=== PATIENT | male | born 1980 | race Caucasian/White ===

== ENCOUNTER → 2019-06-04 09:26 | Outpatient (BNVA) | payer MEDICAID, SELFPAY | PROVIDERS: PCP Family Medicine; Visit Provider Nurse Practitioner | DX: F25.1 Schizoaffective disorder, depressive type (principal); F10.20 Alcohol dependence, uncomplicated | CPT/HCPCS: 99213 ==

== ENCOUNTER → 2019-07-02 08:56 | Outpatient (BNVA) | payer MEDICAID, SELFPAY | PROVIDERS: PCP Family Medicine; Visit Provider Nurse Practitioner | DX: F25.1 Schizoaffective disorder, depressive type (principal); F10.20 Alcohol dependence, uncomplicated | CPT/HCPCS: 96372; 99213 ==

== ENCOUNTER → 2019-07-30 10:49 | Outpatient (BNVA) | payer MEDICAID, SELFPAY | PROVIDERS: PCP Family Medicine; Visit Provider Nurse Practitioner | DX: F25.1 Schizoaffective disorder, depressive type (principal); F10.20 Alcohol dependence, uncomplicated | CPT/HCPCS: 99213 ==

== ENCOUNTER → 2019-09-24 07:37 | Outpatient (BNVA) | payer MEDICAID, SELFPAY | PROVIDERS: PCP Family Medicine; Visit Provider Nurse Practitioner | DX: F10.20 Alcohol dependence, uncomplicated (principal); F25.1 Schizoaffective disorder, depressive type | CPT/HCPCS: 99213 ==

== ENCOUNTER → 2019-10-22 07:44 | Outpatient (BNVA) | payer MEDICAID, SELFPAY | PROVIDERS: PCP Family Medicine; Visit Provider Nurse Practitioner | DX: F10.20 Alcohol dependence, uncomplicated (principal); F25.1 Schizoaffective disorder, depressive type | CPT/HCPCS: 99213 ==

== ENCOUNTER → 2019-11-19 07:41 | Outpatient (BNVA) | payer MEDICAID, SELFPAY | PROVIDERS: PCP Family Medicine; Visit Provider Nurse Practitioner | DX: F10.20 Alcohol dependence, uncomplicated (principal); F25.1 Schizoaffective disorder, depressive type; F43.12 Post-traumatic stress disorder, chronic | CPT/HCPCS: 99214 ==

== ENCOUNTER → 2019-12-17 07:35 | Outpatient (BNVA) | payer MEDICAID, SELFPAY | PROVIDERS: PCP Family Medicine; Visit Provider Nurse Practitioner | DX: F25.1 Schizoaffective disorder, depressive type (principal); F10.20 Alcohol dependence, uncomplicated | CPT/HCPCS: 96372; 99213 ==

== ENCOUNTER → 2020-03-10 08:47 | Outpatient (BNVA) | payer MEDICAID, SELFPAY | PROVIDERS: PCP Family Medicine; Visit Provider Nurse Practitioner | DX: F25.1 Schizoaffective disorder, depressive type (principal); F43.12 Post-traumatic stress disorder, chronic | CPT/HCPCS: 96372; 99213 ==

== ENCOUNTER → 2020-06-02 08:50 | Outpatient (BNVA) | payer MEDICAID, SELFPAY | PROVIDERS: PCP Family Medicine; Visit Provider Nurse Practitioner | DX: F25.1 Schizoaffective disorder, depressive type (principal) | CPT/HCPCS: 96372 ==

== ENCOUNTER → 2020-06-03 14:25 | Outpatient (BNVA) | payer MEDICAID, SELFPAY | PROVIDERS: PCP Family Medicine; Visit Provider Nurse Practitioner | DX: F25.1 Schizoaffective disorder, depressive type (principal) | CPT/HCPCS: 96372; 99213 ==

== ENCOUNTER → 2020-09-01 09:43 | Outpatient (BNVA) | payer MEDICAID, SELFPAY | PROVIDERS: PCP Family Medicine; Visit Provider Nurse Practitioner | DX: F25.1 Schizoaffective disorder, depressive type (principal); F10.20 Alcohol dependence, uncomplicated | CPT/HCPCS: 96372; 99214 ==

== ENCOUNTER → 2020-11-25 09:27 | Outpatient (BNVA) | payer MEDICAID, SELFPAY | PROVIDERS: PCP Family Medicine; Visit Provider Nurse Practitioner | DX: F25.1 Schizoaffective disorder, depressive type (principal); F10.20 Alcohol dependence, uncomplicated | CPT/HCPCS: 96372; 99214 ==

== ENCOUNTER → 2021-02-23 09:26 | Outpatient (BNVA) | payer MEDICAID, SELFPAY | PROVIDERS: PCP Family Medicine; Visit Provider Nurse Practitioner | DX: F25.1 Schizoaffective disorder, depressive type (principal); F10.20 Alcohol dependence, uncomplicated | CPT/HCPCS: 99214 ==

== ENCOUNTER → 2021-05-27 13:45 | Outpatient (BNVA) | payer MEDICAID, SELFPAY | PROVIDERS: PCP Family Medicine; Visit Provider Nurse Practitioner | DX: F25.1 Schizoaffective disorder, depressive type (principal); F10.20 Alcohol dependence, uncomplicated | CPT/HCPCS: 96372; 99214 ==

== ENCOUNTER → 2021-08-24 08:50 | Outpatient (BNVA) | payer MEDICAID, SELFPAY | PROVIDERS: PCP Family Medicine; Visit Provider Nurse Practitioner | DX: F10.20 Alcohol dependence, uncomplicated (principal); F25.1 Schizoaffective disorder, depressive type | CPT/HCPCS: 96372; 99214 ==

== ENCOUNTER → 2021-11-16 10:47 | Outpatient (BNVA) | payer MEDICAID, SELFPAY | PROVIDERS: PCP Family Medicine; Visit Provider Nurse Practitioner | DX: F10.20 Alcohol dependence, uncomplicated (principal); F25.1 Schizoaffective disorder, depressive type | CPT/HCPCS: 96372; 99214 ==

== ENCOUNTER 2023-01-06 17:48 | Inpatient (IN) | payer MEDICAID, SELFPAY ==
[2023-01-06 18:19] VITALS: BP 144/89; PULSE 66; RESP 15; TEMP 36.7; O2SAT 96
--- NOTE | 2023-01-06 18:58 | XRR_ITS ---
PROCEDURE INFORMATION: Exam: XR Abdomen Exam date and time: 01/06/2023 7:12 PM Age: 42 years old Clinical indication: Abdominal pain; Acute; Additional info: Low abd pain, pain, n/v TECHNIQUE: Imaging protocol: Radiologic exam of the abdomen. Views: Frontal supine view of the abdomen. 1 View. COMPARISON: CR XR chest 1V [id number] 08/07/2018 6:14 PM FINDINGS: Gastrointestinal tract: There is moderate gaseous distention of the stomach. A few mildly dilated small bowel loops are seen in the left hemiabdomen. Bones/joints: Unremarkable. XR/XR KUB [id number] IMPRESSION: Ileus versus early or low-grade small bowel obstruction.
[2023-01-06 19:55] LABS: Basophils # 0.1 10^3/uL (0.0-0.1); Basophils % 0.4 %; Eosinophils % 0.2 %; Hematocrit 54.1 % (42.0-52.0); Hemoglobin 18.3 g/dL (11.7-16.6); Lymphocytes # 0.7 10^3/uL (0.8-4.8); Mean Corpuscular HGB Conc 33.8 g/dL (30.0-36.0); Mean Corpuscular Hemoglobin 30.3 pg (28.0-34.0); Mean Corpuscular Volume 89.7 fl (80-94); Mean Platelet Volume 8.8 fL (7.4-10.4); Monocytes # 0.8 10^3/uL (0.2-0.9); Monocytes % 4.6 %; Neutrophils # 15.05 10^3/uL (1.8-7.7); Neutrophils % 90.3 %; Nucleated Red Blood Cells % 0 %; Platelet Count 287 10^3/cmm (130-400); Red Blood Count 6.03 10^6/uL (4.1-5.3); Red Cell Distribution Width 13.3 % (12.1-15.1); White Blood Count 16.7 10^3/uL (4.0-10.0)
[2023-01-06 19:57] LABS: Erythrocyte Sedimentation Rate 4 mm/hr (0-10)
[2023-01-06 20:11] LABS: Alanine Aminotransferase 57 U/L (0-41); Albumin Level 5.2 g/dL (3.5-5.2); Alkaline Phosphatase 73 U/L (40-130); Anion Gap 19.1 (5-19); Aspartate Amino Transferase 28 U/L (0-40); Blood Urea Nitrogen 9 mg/dL (6-20); C Reactive Protein 6.5 mg/L (0.0-4.9); Calcium 10.4 mg/dL (8.5-10.5); Carbon Dioxide 28 mmol/L (22-29); Chloride 94 mmol/L (98-107); Creatinine Clr Calc Pharmacy 149.8278; Globulin 3.1 g/dL (1.3-4.6); Glomerular Filtration Rate 124.9 mL/min (90-130); Glucose 157 mg/dL (65-115); Lipase 16 U/L (13-60); Osmolality Calculated 286 mOsm/kg (285-295); Potassium 4.1 mmol/L (3.5-5.1); Sodium 137 mmol/L (136-145); Total Bilirubin 0.4 mg/dL (0.15-1.2); Total Protein 8.3 g/dL (6.6-8.7)
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
[2023-01-06] MEDS: sodium chloride 0.9% 1,000 ML 999 ML IV ×2 (21:41→23:35)
[2023-01-06 21:43] VITALS: RESP 18; O2SAT 92
[2023-01-06] MEDS: fentaNYL 50 mcg/mL INJ 2mL 25 MCG IVP (21:43)
[2023-01-06 21:45] VITALS: BP 150/92; PULSE 67; RESP 19; O2SAT 92
[2023-01-06] MEDS: iohexol 350 mg/mL 500 mL Btl (per mL) IV (22:17)
[2023-01-06 23:00] VITALS: BP 147/93; PULSE 74; O2SAT 93
[2023-01-06 23:35] VITALS: RESP 18; O2SAT 90
[2023-01-06] MEDS: morphine 4 mg/mL SDV 1 mL IVP (23:35)
--- NOTE | 2023-01-06 23:51 | XRR_ITS ---
PROCEDURE INFORMATION: Exam: XR Chest Exam date and time: 01/06/2023 11:55 PM Age: 42 years old Clinical indication: Device placement; Ng tube; Patient HX: Check S/P ng placement; Additional info: Post ng tube placement, ng tube TECHNIQUE: Imaging protocol: Radiologic exam of the chest. Views: 1 view. COMPARISON: CR XR chest 1V [id number] 08/07/2018 6:14 PM FINDINGS: Tubes, catheters and devices: The NG tube and side hole are in the fundus and body of the stomach. EKG monitoring leads overlie the thoracic wall. Lungs: Bibasilar lower lobe confluent opacities that likely represent atelectasis. Pleural spaces: No pleural effusion or pneumothorax. Heart/Mediastinum: Normal in size. Diaphragm: Mild asymmetric elevation of the left hemidiaphragm. Bones/joints: No acute fracture is identified. XR/XR chest 1V [id number] IMPRESSION: 1. NG tube in the stomach. 2. Bibasilar lower lobe confluent opacities that likely represent atelectasis. In the appropriate clinical setting, the left lower lobe opacity may represent pneumonia.
[2023-01-07] VITALS (28 sets, daily range): BP systolic 118–152; BP diastolic 63–98; PULSE 65–99; RESP 16–18; TEMP 36.3–38.2; O2SAT 87–95
[2023-01-07] MEDS: sodium chloride 0.9% 1,000 ML 100 ML IV (01:06)
[2023-01-07] MEDS: HYDROmorphone 1 mg/mL INJ 1 mL IVP ×6 (01:48→23:31)
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
--- NOTE | 2023-01-07 09:07 | PC.CHAP ---
Pastoral Care Encounter/Spiritual Assessment Type of Contact [] Declined laboratory immunologist visit [] Patient/Family/Request visit [] Outpatient visit [] Follow-up visit [] Physician referral [] Code/Alert [x] Routine visit [] Staff referral [] Actively dying [] Patient sleeping [x] Family support [] [] Out of room [] Palliative care [] [] Receiving care in room [] Pre-surgical visit [] Trauma [] Long length of stay [] ICU visit [] Other: Relational/Emotional Strength [x] Patient feels connected with others/family/visitors/staff [] Distress [] Loneliness/isolation [] Abandonment Spirituality of Patient [x] Person of Sonia [] Attends Amish of their Sonia [x] Believes in Prayer [] Reads Bible or Evangelical materials [] There are Spiritual issues to be addressed [employer] Interventions [x] Prayer [] Active listening [] Non-anxious presence [x] Spiritual/emotional support [] Crisis/trauma care [] Spiritual counseling [] Bereavement support [] Provided bereavement packet [] Provided Bible/devotional materials [] Provided toy/stuffed animal, coloring book to patient or family member [] Provided Communion [] Anointing/Independence [] Salvation [] Completed spiritual assessment [] Other: Impact on Illness or Injury [] Angry [] Fearful [] Anxious [] Often cries [] Exhaustion [] Unable to work [] Unable to attend holiness [] Unable to walk/stand [] Unable to read [] Unable to drive [] Unable to eat/drink [] Unable to sleep [] Unable to be with family [] Patient intubated [] Other: Summary Time spent with patient 5 min
[2023-01-07] MEDS: sodium chloride 0.9% 1,000 ML 150 ML IV ×2 (09:31→21:48)
[2023-01-07 09:40] LABS: Add Urine Microscopic? YES; Bilirubin Urine 1+ (Negative); Blood Urine Neg (Negative); Glucose Urine UA Norm (Normal); Ketones Urine 2+ (Negative); Leukocyte Esterase Urine Negative (Negative); Nitrate Urine Negative (Negative); Protein Urine 1+ (Negative); Urine Appearance Clear (CLEAR); Urine Color Yellow (Yellow); Urobilinogen Urine Norm (Negative); pH Urine 6.5 (5-7)
[2023-01-07 09:41] LABS: Add Urine Culture? No; Bacteria Urine TRACE /hpf; Mucus Urine 1+ /hpf; RBC Urine 0-4 /hpf (0-2); Squamous Epithelial Cell Urine 0-4 /hpf (0-5); WBC Urine 0-4 /hpf (0-5)
[2023-01-07] MEDS: piperacillin-tazobactam 3.375 GM in sodium chloride 0.9% (plus) 50 ML IV ×2 (13:49→21:47)
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
[2023-01-07] MEDS: sodium chloride 0.9% 1,000 ML 30 ML IV (14:13)
--- NOTE | 2023-01-07 14:39 | P.ANESASSM_ITS ---
Pre-Anesthetic Assessment Height/Weight: Height 1.73 m Weight 86.183 kg Temp Pulse Resp BP Pulse Ox O2 Del Method 100.4 F H 94 17 142/92 87 L Room Air 01/07/23 14:03 01/07/23 14:03 01/07/23 14:03 01/07/23 14:03 01/07/23 14:03 01/07/23 14:03 Operation Date: 01/07/23 14:30 Proposed Procedures p Laparoscopic Ventral Hernia Repair Laparoscopic Abdominal Hernia Repair(Not Applicable) - Sunil Camilo DO Familial anesthetic complications: none Was Beta Cherri taken within 24 hours: N/A Was Clonidine taken within 24 hours: N/A Social Alcohol and Tobacco Exam alert, oriented x 3 and regular rate & rhythm Airway Submandibular: within normal limits Cervical ROM: within normal limits Mallampati: Class II Dentition: chipped (very poor dentition) Pulmonary Chronic Obstructive Pulmonary Disease GI Acute abdomen (moderate distress) Neuropsych Schizo Anesthetic Plan ASA status: 3E Anesthesia: General (Mod RSI (NGT in place)) Medications/Allergies Home Medications Medication Instructions Recorded Confirmed Last Taken Type hydroxyzine HCl 25 mg tablet 25 mg PO TID PRN anxiety #90 tabs 06/03/20 01/07/23 01/05/23 Rx trazodone 50 mg tablet 50 mg PO .QHS #30 tabs 05/03/22 01/07/23 01/05/23 Rx paliperidone 6 mg tablet,extended 12 mg PO QAM #60 tabs 01/03/23 01/07/23 01/05/23 Rx release 24 hr (Invega) Allergies Allergy/AdvReac Type Severity Reaction Status Date / Time No Known Allergies Allergy Verified 01/06/23 18:25 Current Medications Generic Name Dose Route Start Last Admin Trade Name Freq PRN Reason Stop Dose Admin Hydromorphone HCl 1 mg 01/07/23 01:25 01/07/23 12:08 Hydromorphone 1 Mg/Ml Inj 1 Ml IVP 1 mg Q3H PRN Administration PAIN Sodium Chloride 1,000 mls @ 150 mls/hr 01/07/23 01:30 01/07/23 09:31 Sodium Chloride 0.9% IV 150 mls/hr .Q6H40M LEN Administration Piperacillin Sod/Tazobactam 50 mls @ 12.5 mls/hr 01/07/23 13:00 01/07/23 13:49 Sod 3.375 gm/ Sodium Chloride IV 12.5 mls/hr Q8H LEN Administration Protocol Sodium Chloride 1,000 mls @ 30 mls/hr 01/07/23 14:15 01/07/23 14:13 Sodium Chloride 0.9% IV 01/08/23 14:14 30 mls/hr .Q24H LEN Administration PFSH Anesthesia Medical History Alcohol dependence, uncomplicated Psychiatric care Schizoaffective disorder, depressive type Social History Smoking and tobacco status: current every day smoker cigarettes Packs smoked per day: 1 Smoking risk assessment/counseling performed?: Yes Tobacco counseling given: counseling >3 minutes Data Anesthesia 01/06/23 19:34 01/06/23 19:34 Short CBC 01/06/23 Range/Units 19:34 WBC 16.7 H (4.0-10.0) 10^3/uL Hgb 18.3 H (11.7-16.6) g/dL Hct 54.1 H (42.0-52.0) % MCV 89.7 (80-94) fl Plt Count 287 (130-400) 10^3/cmm Neut % (Auto) 90.3 % Neut # (Auto) 15.05 H (1.8-7.7) 10^3/uL BMP 01/06/23 19:34 Sodium 137 Potassium 4.1 Chloride 94 L Carbon Dioxide 28 BUN 9 Creatinine 0.7 Glucose 157 H Calcium 10.4 Liver Function 01/06/23 Range/Units 19:34 Total Bilirubin 0.4 (0.15-1.2) mg/dL AST 28 (0-40) U/L ALT 57 H (0-41) U/L Alkaline Phosphatase 73 (40-130) U/L Albumin 5.2 (3.5-5.2) g/dL Urine 01/07/23 Range/Units 08:27 Urine Color Yellow (Yellow) Urine Appearance Clear (CLEAR) Urine pH 6.5 (5-7) Ur Specific [place] 1.010 (1.005-1.030) Urine Protein 1+ H (Negative) Urine Glucose (UA) Norm (Normal) Urine Ketones 2+ H (Negative) Urine Nitrate Negative (Negative) Urine Bilirubin 1+ H (Negative) Ur Leukocyte Esterase Negative (Negative) Urine RBC 0-4 H (0-2) /hpf Urine WBC 0-4 H (0-5) /hpf Coags 01/06/23 01/06/23 19:34 19:34 ESR 4 C-Reactive Protein 6.5 H Cardiac Studies: No Data to Display
[2023-01-07] MEDS: lidocaine-epi 2% 20 mL INJ INJECTION (14:41)
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
--- NOTE | 2023-01-07 16:41 | ANE.PACU2 ---
Inpatient post-anesthesia follow up: Airway intact: Yes Vital signs: Temperature 97.8 F Pulse Rate 99 Respiratory Rate 18 Blood Pressure 127/96 Pulse Oximetry 90 Oxygen Delivery Me thod Simple Mask Oxygen Flow Rate 6 Fraction of Inspir ed Oxygen Hydration adequate: Yes Nausea and vomiting: No Pain level: 3 Mental status: Baseline
--- NOTE | 2023-01-07 16:56 | SUR.PHASEI ---
Pt ready to transfer to the floor at 1650, waiting to give report.
[2023-01-07] MEDS: morphine 4 mg/mL SDV 1 mL IVP (21:59)
[2023-01-08] VITALS (11 sets, daily range): BP systolic 120–132; BP diastolic 81–85; PULSE 86–98; RESP 15–20; TEMP 36.8–37.4; O2SAT 88–93
[2023-01-08] MEDS: HYDROmorphone 1 mg/mL INJ 1 mL IVP ×2 (03:22→14:09)
[2023-01-08] MEDS: sodium chloride 0.9% 1,000 ML 150 ML IV ×3 (04:33→20:02)
[2023-01-08] MEDS: piperacillin-tazobactam 3.375 GM in sodium chloride 0.9% (plus) 50 ML IV ×3 (04:34→20:01)
[2023-01-08] MEDS: morphine 4 mg/mL SDV 1 mL IVP ×2 (04:43→09:36)
[2023-01-08] MEDS: paliperidone ER 6 mg Tablet 12 MG PO (09:26)
--- NOTE | 2023-01-08 10:12 | PM.PN ---
Subjective Subjective: Patient seen and examined. Abdominal pain improved. Denies any nausea or vomiting. No BM or flatus yet Vitals/I&O/Wt Last Vital Signs Temp 99.1 F 01/09/23 07:34 Pulse 94 01/09/23 07:34 Resp 16 01/09/23 07:34 BP 132/88 01/09/23 07:34 Pulse Ox 92 01/09/23 07:34 O2 Del Method Nasal Cannula 01/09/23 07:34 O2 Flow Rate 3 01/09/23 09:54 01/08/23 01/09/23 01/09/23 22:59 06:59 14:59 Intake Total 1895.5 / 3425.5 925 / 4350.5 1170 / 1170 Output Total 300 / 300 Balance 1595.5 / 3125.5 925 / 4050.5 1170 / 1170 Physical Exam Narrative: Abdomen: Soft, mildly distended, appropriately tender Data 01/08/23 10:40 01/09/23 05:41 A&P Assessment and plan (1) Incarcerated incisional hernia: (2) SBO (small bowel obstruction): Plan Status post laparoscopic repair of incisional hernia with mesh and extensive lysis of adhesions Clear liquid diet Await return of bowel function Attestations Medical Necessity Statement*: Patient requires at least 1 more night in the hospital for recovery after incarcerated incisional hernia repair with mesh that was causing a small bowel obstruction Coding Level of Care Code Acute Code for Chg Fwd Diagnoses Incarcerated incisional hernia K43.0 SBO (small bowel obstruction) K56.609
[2023-01-08 10:54] LABS: Basophils % 0.1 %; Eosinophils % 0.2 %; Hematocrit 45.7 % (42.0-52.0); Hemoglobin 15.2 g/dL (11.7-16.6); Lymphocytes # 0.6 10^3/uL (0.8-4.8); Lymphocytes % 6.3 %; Mean Corpuscular HGB Conc 33.3 g/dL (30.0-36.0); Mean Corpuscular Hemoglobin 30.9 pg (28.0-34.0); Mean Corpuscular Volume 92.9 fl (80-94); Mean Platelet Volume 8.8 fL (7.4-10.4); Monocytes # 0.8 10^3/uL (0.2-0.9); Monocytes % 8.8 %; Neutrophils # 7.26 10^3/uL (1.8-7.7); Neutrophils % 83.8 %; Nucleated Red Blood Cells % 0 %; Platelet Count 222 10^3/cmm (130-400); Red Blood Count 4.92 10^6/uL (4.1-5.3); Red Cell Distribution Width 13.8 % (12.1-15.1); White Blood Count 8.7 10^3/uL (4.0-10.0)
[2023-01-08 11:15] LABS: Anion Gap 12.6 (5-19); Blood Urea Nitrogen 9 mg/dL (6-20); Carbon Dioxide 25 mmol/L (22-29); Chloride 103 mmol/L (98-107); Glomerular Filtration Rate 107.1 mL/min (90-130); Glucose 165 mg/dL (65-115); Magnesium 1.9 mg/dL (1.7-2.3); Osmolality Calculated 286 mOsm/kg (285-295); Potassium 3.6 mmol/L (3.5-5.1); Sodium 137 mmol/L (136-145)
[2023-01-08] MEDS: HYDROcodone-acetaminophen 7.5-325 mg Tablet 1 TAB PO (20:01)
[2023-01-09] MEDS: HYDROcodone-acetaminophen 7.5-325 mg Tablet 1 TAB PO ×3 (00:09→22:23)
[2023-01-09] MEDS: sodium chloride 0.9% 1,000 ML 150 ML IV ×4 (01:52→22:48)
[2023-01-09 03:14] VITALS: RESP 18
[2023-01-09] MEDS: HYDROmorphone 1 mg/mL INJ 1 mL IVP ×3 (03:14→18:30)
[2023-01-09 04:00] VITALS: BP 115/75; PULSE 87; RESP 15; TEMP 36.8; O2SAT 91
[2023-01-09] MEDS: piperacillin-tazobactam 3.375 GM in sodium chloride 0.9% (plus) 50 ML IV ×3 (05:25→21:06)
[2023-01-09 06:44] LABS: Alanine Aminotransferase 24 U/L (0-41); Albumin Level 3.6 g/dL (3.5-5.2); Alkaline Phosphatase 49 U/L (40-130); Blood Urea Nitrogen 9 mg/dL (6-20); Calcium 8.8 mg/dL (8.5-10.5); Carbon Dioxide 25 mmol/L (22-29); Chloride 100 mmol/L (98-107); Globulin 3.1 g/dL (1.3-4.6); Glomerular Filtration Rate 107.1 mL/min (90-130); Glucose 147 mg/dL (65-115); Magnesium 2.1 mg/dL (1.7-2.3); Osmolality Calculated 285 mOsm/kg (285-295); Sodium 137 mmol/L (136-145); Total Bilirubin 0.8 mg/dL (0.15-1.2); Total Protein 6.7 g/dL (6.6-8.7)
[2023-01-09 06:56] LABS: Anion Gap 15.5 (5-19); Aspartate Amino Transferase 20 U/L (0-40); Potassium 3.5 mmol/L (3.5-5.1)
--- NOTE | 2023-01-09 07:06 | PC.NURSE ---
NOTIFIED DR LIN BY PHONE THAT PT ABD IS FIRM, DISTENDED, AND HOT TO TOUCH OVER LLQ WHERE HERNIATION WAS PRE OPERATIVELY. PT ALSO EXPERIENCING NAUSEA.
[2023-01-09 07:34] VITALS: BP 132/88; PULSE 94; RESP 16; TEMP 37.3; O2SAT 92
[2023-01-09] MEDS: ondansetron 2 mg/ML SDV 2 mL 4 MG IVP (09:02)
[2023-01-09] MEDS: paliperidone ER 6 mg Tablet 12 MG PO (09:28)
--- NOTE | 2023-01-09 10:14 | PM.PN ---
Subjective Subjective: Patient had nausea and vomiting this morning. Increased abdominal distention and pain. Still no bowel movement or flatus Vitals/I&O/Wt Last Vital Signs Temp 99.1 F 01/09/23 07:34 Pulse 94 01/09/23 07:34 Resp 16 01/09/23 07:34 BP 132/88 01/09/23 07:34 Pulse Ox 92 01/09/23 07:34 O2 Del Method Nasal Cannula 01/09/23 07:34 O2 Flow Rate 3 01/09/23 09:54 01/08/23 01/09/23 01/09/23 22:59 06:59 14:59 Intake Total 1895.5 / 3425.5 925 / 4350.5 1170 / 1170 Output Total 300 / 300 Balance 1595.5 / 3125.5 925 / 4050.5 1170 / 1170 Physical Exam Narrative: Abdomen: Soft, distended, appropriately tender Data 01/08/23 10:40 01/09/23 05:41 A&P Assessment and plan (1) Incarcerated incisional hernia: (2) SBO (small bowel obstruction): Plan Status post laparoscopic repair of incisional hernia with mesh and extensive lysis of adhesions NG tube to low intermittent wall suction N.p.o. except for ice chips and Ambi Await return of bowel function Attestations Medical Necessity Statement*: Patient requires at least 1 more night in the hospital for recovery after incarcerated incisional hernia repair with mesh that was causing a small bowel obstruction Coding Level of Care Code Acute Code for Chg Fwd Diagnoses Incarcerated incisional hernia K43.0 SBO (small bowel obstruction) K56.609
--- NOTE | 2023-01-09 12:52 | XRR_ITS ---
PROCEDURE INFORMATION: Exam: XR Abdomen Exam date and time: 01/09/2023 1:11 PM Age: 42 years old Clinical indication: Device placement; Gi device; Nasogastric tube; Additional info: Ngt placement, requested change of imaging TECHNIQUE: Imaging protocol: Radiologic exam of the abdomen. 1image(s) are provided. Views: Frontal supine view of the abdomen. 1 View. COMPARISON: 1. CT abdomen pelvis w con* [id number] 01/06/2023 10:16 PM 2. CR (CHEST, ) 01/06/2023 11:55 PM FINDINGS: Tubes, catheters and devices: The study is focused on the left lower chest and upper abdomen for gastric tube placement with the tip overlying the lateral gastric body margins similar overall. Lungs: There is some bandlike subsegmental atelectasis versus post inflammatory scarring demonstrated.No lobar consolidation is appreciated. Gastrointestinal tract: There is scattered large and small-bowel gas similar overall. No layering free air is currently appreciated with some scattered large and small-bowel gas otherwise relatively similar. Bones/joints: Osseous alignment is maintained.No interval displaced fracture or dislocation is appreciated. Soft tissues: No radiopaque foreign body or subcutaneous emphysema is appreciated. Other findings: No significant interval changes are appreciated. XR/XR KUB [id number] IMPRESSION: The gastric tube tip overlies the gastric body level.
[2023-01-09 14:03] VITALS: RESP 18; O2SAT 94
[2023-01-09 22:25] VITALS: BP 132/83; PULSE 84; RESP 18
[2023-01-10] VITALS (8 sets, daily range): BP systolic 118–132; BP diastolic 75–83; PULSE 83–99; RESP 16–20; TEMP 36.6–37.5; O2SAT 90–92
[2023-01-10] MEDS: HYDROcodone-acetaminophen 7.5-325 mg Tablet 1 TAB PO ×4 (02:58→21:29)
[2023-01-10] MEDS: sodium chloride 0.9% 1,000 ML 150 ML IV ×3 (04:55→19:10)
[2023-01-10] MEDS: piperacillin-tazobactam 3.375 GM in sodium chloride 0.9% (plus) 50 ML IV ×3 (05:01→23:12)
[2023-01-10 05:37] LABS: Basophils # 0.1 10^3/uL (0.0-0.1); Basophils % 0.6 %; Eosinophils # 0.2 10^3/uL (0.0-0.8); Eosinophils % 1.7 %; Hemoglobin 12.8 g/dL (11.7-16.6); Lymphocytes # 0.5 10^3/uL (0.8-4.8); Lymphocytes % 5.3 %; Mean Corpuscular HGB Conc 33.7 g/dL (30.0-36.0); Mean Corpuscular Hemoglobin 30.4 pg (28.0-34.0); Mean Corpuscular Volume 90.3 fl (80-94); Mean Platelet Volume 9.7 fL (7.4-10.4); Monocytes # 0.9 10^3/uL (0.2-0.9); Monocytes % 9.6 %; Neutrophils % 82.4 %; Nucleated Red Blood Cells % 0 %; Platelet Count 225 10^3/cmm (130-400); Red Blood Count 4.21 10^6/uL (4.1-5.3); Red Cell Distribution Width 13.9 % (12.1-15.1); White Blood Count 9.5 10^3/uL (4.0-10.0)
[2023-01-10 05:51] LABS: Magnesium 2.1 mg/dL (1.7-2.3)
[2023-01-10 05:56] LABS: Anion Gap 14.3 (5-19); Blood Urea Nitrogen 9 mg/dL (6-20); Calcium 7.6 mg/dL (8.5-10.5); Carbon Dioxide 24 mmol/L (22-29); Chloride 103 mmol/L (98-107); Creatinine Clr Calc Pharmacy 149.8278; Glomerular Filtration Rate 124.9 mL/min (90-130); Glucose 98 mg/dL (65-115); Osmolality Calculated 285 mOsm/kg (285-295); Potassium 3.3 mmol/L (3.5-5.1); Sodium 138 mmol/L (136-145)
[2023-01-10 06:13] LABS: Slide Review Slide Review Perform
[2023-01-10] MEDS: paliperidone ER 6 mg Tablet 12 MG PO (09:33)
[2023-01-10] MEDS: HYDROmorphone 1 mg/mL INJ 1 mL IVP ×2 (14:48→23:20)
--- NOTE | 2023-01-10 15:01 | PM.PN ---
Subjective Subjective: Patient seen and examined. He had emesis this morning. Still no bowel movement or flatus Vitals/I&O/Wt Last Vital Signs Temp 99.1 F 01/12/23 12:00 Pulse 93 01/12/23 12:00 Resp 16 01/12/23 12:00 BP 126/78 01/12/23 12:00 Pulse Ox 94 01/12/23 12:00 O2 Del Method Nasal Cannula 01/12/23 03:48 O2 Flow Rate 3 01/12/23 03:48 01/12/23 01/12/23 01/12/23 06:59 14:59 22:59 Intake Total 1012.5 / 3319.437 1290 / 1290 Balance 1012.5 / 3319.437 1290 / 1290 Physical Exam Narrative: Abdomen soft, distended, appropriately tender to palpation Data 01/12/23 04:46 01/12/23 04:46 A&P Assessment and plan (1) Incarcerated incisional hernia: (2) SBO (small bowel obstruction): Plan Status post laparoscopic repair of incisional hernia with mesh and extensive lysis of adhesions NG tube to low intermittent wall suction N.p.o. except for ice chips and Ambi Await return of bowel function Attestations Medical Necessity Statement*: Patient requires at least 1 more night in the hospital for conservative treatment for small bowel obstruction Coding Level of Care Code Acute Code for Chg Fwd Diagnoses Incarcerated incisional hernia K43.0 SBO (small bowel obstruction) K56.609
--- NOTE | 2023-01-10 17:01 | XRR_ITS ---
PROCEDURE INFORMATION: Exam: XR Abdomen Exam date and time: 01/10/2023 5:15 PM Age: 42 years old Clinical indication: Other: Sbo TECHNIQUE: Imaging protocol: Radiologic exam of the abdomen. Views: 2 Views. Upright and supine views. COMPARISON: CR (ABDOMEN, ) 01/09/2023 1:11 PM FINDINGS: Tubes, catheters and devices: There is an enteric tube present with distal tip in the stomach. Lungs: Low lung volumes bilaterally causing crowding of the lung markings. Mild compressive atelectasis at the lung bases. Pleural spaces: Small bilateral pleural effusions. Heart/Mediastinum: Mild cardiomegaly is noted. Gastrointestinal tract: Dilated small bowel loops seen in the upper abdomen. Intraperitoneal space: No free air. Bones/joints: Unremarkable for age. XR/XR acute abdomen series [id number] IMPRESSION: 1. There is an enteric tube present with distal tip in the stomach. 2. Dilated small bowel loops seen in the upper abdomen. 3. Mild cardiomegaly is noted. 4. Low lung volumes bilaterally causing crowding of the lung markings. Mild compressive atelectasis at the lung bases. 5. Small bilateral pleural effusions.
[2023-01-11 01:00] VITALS: BP 123/76; PULSE 96; RESP 20; TEMP 37.5; O2SAT 93
[2023-01-11] MEDS: sodium chloride 0.9% 1,000 ML 150 ML IV ×3 (01:33→19:28)
[2023-01-11] MEDS: HYDROcodone-acetaminophen 7.5-325 mg Tablet 1 TAB PO ×5 (03:44→21:54)
[2023-01-11 04:37] VITALS: BP 115/78; PULSE 85; RESP 16; TEMP 36.8; O2SAT 96
[2023-01-11 05:03] LABS: Basophils # 0.1 10^3/uL (0.0-0.1); Basophils % 0.9 %; Eosinophils # 0.3 10^3/uL (0.0-0.8); Eosinophils % 2.5 %; Hematocrit 36.9 % (42.0-52.0); Hemoglobin 12.5 g/dL (11.7-16.6); Lymphocytes # 0.5 10^3/uL (0.8-4.8); Lymphocytes % 5.5 %; Mean Corpuscular HGB Conc 33.9 g/dL (30.0-36.0); Mean Corpuscular Hemoglobin 30.9 pg (28.0-34.0); Mean Corpuscular Volume 91.1 fl (80-94); Monocytes # 1.5 10^3/uL (0.2-0.9); Monocytes % 14.8 %; Neutrophils # 7.47 10^3/uL (1.8-7.7); Neutrophils % 75.5 %; Nucleated Red Blood Cells % 0 %; Platelet Count 243 10^3/cmm (130-400); Red Blood Count 4.05 10^6/uL (4.1-5.3); White Blood Count 9.9 10^3/uL (4.0-10.0)
[2023-01-11 05:30] LABS: Magnesium 2.2 mg/dL (1.7-2.3)
[2023-01-11 05:36] LABS: Anion Gap 12.8 (5-19); Blood Urea Nitrogen 10 mg/dL (6-20); Calcium 8.1 mg/dL (8.5-10.5); Carbon Dioxide 26 mmol/L (22-29); Chloride 103 mmol/L (98-107); Glomerular Filtration Rate 149.2 mL/min (90-130); Glucose 109 mg/dL (65-115); Osmolality Calculated 288 mOsm/kg (285-295); Sodium 139 mmol/L (136-145)
[2023-01-11] MEDS: piperacillin-tazobactam 3.375 GM in sodium chloride 0.9% (plus) 50 ML IV ×3 (05:36→22:09)
[2023-01-11 05:50] LABS: Potassium 2.8 mmol/L (3.5-5.1)
[2023-01-11] MEDS: paliperidone ER 6 mg Tablet 12 MG PO (08:08)
[2023-01-11 09:00] VITALS: BP 130/78; PULSE 90; RESP 17; TEMP 36.4; O2SAT 92
[2023-01-11] MEDS: lidocaine 1% 5 ML in potassium chloride premix 100 ML 26.25 ML IV ×2 (09:51→13:44)
--- NOTE | 2023-01-11 10:56 | PC.NURSE ---
Educated the patient and the mom the importance of ambulation to facilitate with return of bowel function. Patient ambulated in ha once this shift so far.
--- NOTE | 2023-01-11 15:03 | P.PN_ITS ---
Subjective Subjective: Patient is now passing gas. No bowel movement yet Vitals/I&O/Wt Last Vital Signs Temp 99.1 F 01/12/23 12:00 Pulse 93 01/12/23 12:00 Resp 16 01/12/23 12:00 BP 126/78 01/12/23 12:00 Pulse Ox 94 01/12/23 12:00 O2 Del Method Nasal Cannula 01/12/23 03:48 O2 Flow Rate 3 01/12/23 03:48 01/12/23 01/12/23 01/12/23 06:59 14:59 22:59 Intake Total 1012.5 / 3319.437 1290 / 1290 Balance 1012.5 / 3319.437 1290 / 1290 Physical Exam Narrative: Abdomen soft, distended, appropriately tender to palpation Data 01/12/23 04:46 01/12/23 04:46 A&P Assessment and plan (1) Incarcerated incisional hernia: (2) SBO (small bowel obstruction): Plan Status post laparoscopic repair of incisional hernia with mesh and extensive lysis of adhesions DC NG tube and start clear liquids A.m. labs Await return of bowel function Attestations 2 Medical Necessity Statement*: Patient requires at least 1 more night in the hospital for conservative treatment for small bowel obstruction Coding Level of Care Code Acute Code for Chg Fwd Diagnoses Incarcerated incisional hernia K43.0 SBO (small bowel obstruction) K56.609
--- NOTE | 2023-01-11 15:48 | PC.NURSE ---
Dr. Camilo verbally ordered Klor-Con (Potassium) 40 mEq PO one time 4 hours after last Potassium IVP is complete. Order has been put in for 1800.
[2023-01-11 17:00] VITALS: BP 146/88; PULSE 92; RESP 17; TEMP 36.9; O2SAT 94
[2023-01-11] MEDS: potassium chloride ER 20 mEq Tablet 40 MEQ PO (18:57)
[2023-01-11 20:19] VITALS: BP 132/84; PULSE 92; RESP 15; TEMP 36.8; O2SAT 96
[2023-01-11] MEDS: nystatin cream 30 gm 1 APPLIC TOPICAL (21:00)
[2023-01-12] VITALS (7 sets, daily range): BP systolic 119–128; BP diastolic 77–80; PULSE 89–109; RESP 15–18; TEMP 36.9–37.8; O2SAT 91–96
[2023-01-12] MEDS: sodium chloride 0.9% 1,000 ML 150 ML IV ×2 (01:53→12:30)
[2023-01-12] MEDS: HYDROcodone-acetaminophen 7.5-325 mg Tablet 1 TAB PO ×5 (01:57→22:52)
[2023-01-12] MEDS: piperacillin-tazobactam 3.375 GM in sodium chloride 0.9% (plus) 50 ML IV ×3 (05:13→22:13)
[2023-01-12 05:15] LABS: Basophils # 0.1 10^3/uL (0.0-0.1); Basophils % 0.6 %; Eosinophils # 0.4 10^3/uL (0.0-0.8); Eosinophils % 2.8 %; Hematocrit 36.5 % (37-53); Lymphocytes # 0.8 10^3/uL (0.8-4.8); Lymphocytes % 5.9 %; Mean Corpuscular HGB Conc 33.4 g/dL (30-55); Mean Corpuscular Hemoglobin 29.9 pg (27-33); Mean Corpuscular Volume 89.5 fl (82-101); Mean Platelet Volume 9.3 fL (7.4-10.4); Monocytes # 1.7 10^3/uL (0.2-0.9); Monocytes % 12.6 %; Neutrophils # 10.62 10^3/uL (1.8-7.7); Neutrophils % 77.4 %; Nucleated Red Blood Cells % 0 %; Platelet Count 279 10^3/cmm (157-399); Red Blood Count 4.08 10^6/uL (3.85-5.65); Red Cell Distribution Width 14.6 % (12.1-15.1)
[2023-01-12 05:39] LABS: Anion Gap 14.2 (5-19); Blood Urea Nitrogen 8 mg/dL (6-20); Calcium 8.3 mg/dL (8.5-10.5); Carbon Dioxide 23 mmol/L (22-29); Chloride 106 mmol/L (98-107); Glomerular Filtration Rate 149.2 mL/min (90-130); Glucose 124 mg/dL (65-115); Osmolality Calculated 290 mOsm/kg (285-295); Potassium 3.2 mmol/L (3.5-5.1); Sodium 140 mmol/L (136-145)
[2023-01-12 06:10] LABS: Slide Review Slide Review Perform
[2023-01-12] MEDS: paliperidone ER 6 mg Tablet 12 MG PO (10:37)
[2023-01-12] MEDS: potassium chloride ER 20 mEq Tablet 40 MEQ PO ×2 (12:30→17:07)
--- NOTE | 2023-01-12 15:04 | PM.PN ---
Subjective Subjective: Patient is now having bowel movements and pain has improved. Denies any nausea or vomiting Vitals/I&O/Wt Last Vital Signs Temp 99.1 F 01/12/23 12:00 Pulse 93 01/12/23 12:00 Resp 16 01/12/23 12:00 BP 126/78 01/12/23 12:00 Pulse Ox 94 01/12/23 12:00 O2 Del Method Nasal Cannula 01/12/23 03:48 O2 Flow Rate 3 01/12/23 03:48 01/12/23 01/12/23 01/12/23 06:59 14:59 22:59 Intake Total 1012.5 / 3319.437 1290 / 1290 Balance 1012.5 / 3319.437 1290 / 1290 Physical Exam Narrative: Abdomen soft, distended, appropriately tender to palpation, skin overlying the hernia repair is somewhat erythematous and blanchable Data 01/12/23 04:46 01/12/23 04:46 A&P Assessment and plan (1) Incarcerated incisional hernia: (2) SBO (small bowel obstruction): Plan Status post laparoscopic repair of incisional hernia with mesh and extensive lysis of adhesions Full liquids A.m. labs We will likely repeat CT of the abdomen tomorrow if erythema over hernia repair does not improve. Plan for discharge home tomorrow hopefully Attestations Medical Necessity Statement*: Patient requires at least 1 more night in the hospital for conservative treatment for small bowel obstruction Coding Level of Care Code Acute Code for Chg Fwd Diagnoses Incarcerated incisional hernia K43.0 SBO (small bowel obstruction) K56.609
[2023-01-12] MEDS: sodium chloride 0.9% 1,000 ML 75 ML IV (17:07)
[2023-01-12] MEDS: nystatin powder 15 gm Btl 1 APPLIC TOPICAL (17:08)
[2023-01-13] VITALS (18 sets, daily range): BP systolic 114–134; BP diastolic 71–89; PULSE 84–107; RESP 16–27; TEMP 36.8–38.4; O2SAT 91–93
[2023-01-13] MEDS: sodium chloride 0.9% 1,000 ML 75 ML IV (02:29)
[2023-01-13] MEDS: piperacillin-tazobactam 3.375 GM in sodium chloride 0.9% (plus) 50 ML IV ×2 (05:25→14:40)
[2023-01-13] MEDS: HYDROcodone-acetaminophen 7.5-325 mg Tablet 1 TAB PO ×2 (05:25→11:30)
[2023-01-13 05:42] LABS: Basophils # 0.1 10^3/uL (0.0-0.1); Basophils % 0.6 %; Eosinophils # 0.5 10^3/uL (0.0-0.8); Eosinophils % 2.9 %; Hematocrit 36.7 % (37-53); Lymphocytes # 1.1 10^3/uL (0.8-4.8); Lymphocytes % 6.4 %; Mean Corpuscular HGB Conc 33.8 g/dL (30-55); Mean Corpuscular Hemoglobin 30.8 pg (27-33); Mean Corpuscular Volume 91.1 fl (82-101); Mean Platelet Volume 9.3 fL (7.4-10.4); Monocytes # 1.5 10^3/uL (0.2-0.9); Monocytes % 8.7 %; Neutrophils # 14.09 10^3/uL (1.8-7.7); Neutrophils % 80.7 %; Nucleated Red Blood Cells % 0 %; Platelet Count 307 10^3/cmm (157-399); Red Blood Count 4.03 10^6/uL (3.85-5.65); Red Cell Distribution Width 14.9 % (12.1-15.1); White Blood Count 17.46 10^3/uL (3.29-11.43)
[2023-01-13 06:08] LABS: Slide Review Slide Review Perform
[2023-01-13 06:11] LABS: Anion Gap 15.6 (5-19); Blood Urea Nitrogen 8 mg/dL (6-20); Calcium 7.8 mg/dL (8.5-10.5); Carbon Dioxide 21 mmol/L (22-29); Chloride 104 mmol/L (98-107); Glomerular Filtration Rate 238.3 mL/min (90-130); Glucose 101 mg/dL (65-115); Osmolality Calculated 282 mOsm/kg (285-295); Potassium 3.6 mmol/L (3.5-5.1); Sodium 137 mmol/L (136-145)
--- NOTE | 2023-01-13 08:03 | CT_ITS ---
WS: [id number] CT CHEST, ABDOMEN, AND PELVIS TECHNIQUE: Contrast-enhanced CT of the chest, abdomen, and pelvis with coronal and sagittal reformatt ed images. CLINICAL INFORMATION: SIRS, abdominal pain, low lung volume COMPARISON: None. DLP: 1431.[address] scans at [facility] use at least one of these dose optimization techniques: automated e xposure control; mA and/or kV adjustment per patient size (includes targeted exams where dose is matc hed to clinical indication); or iterative reconstruction. CT CHEST: Shallow inspiration. Bibasilar atelectasis with trace bilateral pleural effusions. Compressive atelec tasis in the lung bases. Diffuse pneumomediastinum extending to the thoracic inlet. Normal caliber th oracic aorta. No focal consolidation. Diffuse subcutaneous emphysema in the lower chest wall and thro ughout the abdominal wall mainly anteriorly. CT ABDOMEN AND PELVIS: Reported recent repair of small bowel obstruction and ventral abdominal wall hernia. Air-fluid collec tion in the LEFT anterior abdominal wall surgical site with air-fluid level likely postoperative. The re appears to be a small connection intra-abdominally with a small traversing air tract into the vent ral abdomen. Associated air and fluid within the ventral abdomen. Fluid collection in the subcutaneou s abdominal fat measures approximately 10.1 x 6.1 cm. This mainly consist of air with a small amount of dependent layering fluid. The connecting intra-abdominal air fluid collection measures 10.7 x 4.3 cm Normal hepatic parenchymal enhancement. Normal spleen. Distended stomach with air-fluid level. Adrena l glands are normal. Normal renal parenchyma enhancement. Small amount of free fluid in the pelvis. A dditional air extends into the RIGHT inguinal canal. No evidence of recurrent high-grade small or lar ge bowel obstruction. Few air-fluid levels in slightly prominent small bowel likely due to ileus. Col on appears decompressed. Tiny fat-containing umbilical hernia. Additional tiny supraumbilical hernia containing a small amount of air and fluid. IMPRESSION: 1. Diffuse extensive pneumomediastinum with air extending to the thoracic inlet. Additional diffuse subcutaneous air in the lower chest wall with diffuse subcutaneous emphysema in the abdominal wall. R ecommend correlation for barotrauma. 2. Shallow inspiration. Bibasilar atelectasis with trace pleural effusions. 3. Status post recent small bowel obstruction and hernia repair. 4. Air-fluid collection in the LEFT ventral abdominal wall at the site of hernia repair which appear s to connect to a small air fluid collection with air in the ventral abdomen. Hernia mesh repair in t his area. Subcutaneous air fluid collection measures 10.1 x 6.1 cm 5. Small amount of free fluid in the pelvis. Free air in the anterior abdomen likely due to recent s urgery. 6. No evidence of recurrent high-grade high-grade small bowel obstruction. Slightly dilated loops of small bowel with air-fluid levels likely due to adynamic ileus. Notified Sunil Camilo DO at 01/13/2023 10:13 AM.
[2023-01-13] MEDS: iohexol 350 mg/mL 500 mL Btl (per mL) PO (08:24)
[2023-01-13] MEDS: iohexol 350 mg/mL 500 mL Btl (per mL) IV (09:33)
[2023-01-13] MEDS: paliperidone ER 6 mg Tablet 12 MG PO (11:30)
--- NOTE | 2023-01-13 11:39 | P.PN_ITS ---
Subjective Subjective: Patient seen and examined. Abdominal pain improved and controlled. Having bowel movements and tolerating diet Vitals/I&O/Wt Last Vital Signs Temp 98.8 F 01/13/23 10:54 Pulse 95 01/13/23 10:54 Resp 20 H 01/13/23 10:54 BP 134/89 01/13/23 10:54 Pulse Ox 92 01/13/23 10:54 O2 Del Method Room Air 01/13/23 10:54 O2 Flow Rate 1 01/12/23 23:31 01/12/23 01/13/23 01/13/23 22:59 06:59 14:59 Intake Total 770 / 2060 752.5 / 2812.5 120 / 120 Balance 770 / 2060 752.5 / 2812.5 120 / 120 Physical Exam Narrative: Abdomen soft, distended, appropriately tender to palpation, skin overlying the hernia repair is somewhat erythematous and blanchable Data 01/13/23 05:03 01/13/23 05:03 A&P Assessment and plan (1) Incarcerated incisional hernia: (2) SBO (small bowel obstruction): Plan White blood cell count and heart rate have gone up the last 2 days. I ordered a CT of the chest abdomen and pelvis with IV and oral contrast. Extensive pneumomediastinum and subcutaneous air was seen on CT. Postoperative changes seen in the abdomen with mildly dilated bowel consistent with ileus. Pulmonology was consulted and initially recommended observation. Continue antibiotics. Soft diet. Attestations Medical Necessity Statement*: Patient requires at least 1 more night in the hospital for pulmonology referral for pneumomediastinum and further work-up of leukocytosis and tachycardia Coding Level of Care Code Acute Code for [facility] Fwd Diagnoses Incarcerated incisional hernia K43.0 SBO (small bowel obstruction) K56.609
--- NOTE | 2023-01-13 17:54 | PC.PHAR ---
Patient: Floor: Age: 42 yo Serum creatinine: 0.4 mg/dL Height: 67.7 Inches Weight (kg): 86 IBW (kg): 67.71 Dosing wt(kg): 86 Estimated Creatinine clearance (ml/min): 130 Clearance limited to 130 ml/min to reduce risk of overdosing. CRCL method: Cockcroft and Gault using ibw(default). Drug selected: Vancomycin Loading dose (mg): Vd (liters): 60.2 (factor used: 0.7 L/kg) Artem (hr-1): 0.112 Half life (hrs): 6.19 CLvanco=?? 6.742 L/hr Recommended dose: 1250 mg Interval: 8 hrs Infusion time (hrs): 1 Predicted peak (mcg/mL): 33.2 Predicted trough (mcg/mL): 15.16 Total body weight is being used for vancomycin dosing. Recommendations: Give Vancomycin 1250 mg q 8 hrs with an expected Cpeak of 33.2 mcg/ml and an expected Ctrough of 15.16 mcg/ml AUC 0-24 /ALLIE Data: ALLIE 0.5 mcg/mL:?? AUC/ALLIE:? 1112.4 ALLIE 1.0 mcg/mL:?? AUC/ALLIE:? 556.2 --------- ALLIE 1.5 mcg/mL:?? AUC/ALLIE:? 370.8 ALLIE 2.0 mcg/mL:?? AUC/ALLIE:? 278.1 Renal dosing of other antibiotics (review renal dosing of other medications and list guidelines here): Thank you for the consult, will continue to follow. Signature: Bouchra ClaytonD
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
[2023-01-13] MEDS: HYDROmorphone 1 mg/mL INJ 1 mL IVP ×2 (18:38→21:43)
[2023-01-13 18:41] LABS: Thyroid Stimulating Hormone 2.06 uIU/mL (0.27-4.20)
[2023-01-13 18:45] LABS: SARS Covid-2 Antigen negative (Negative)
[2023-01-13 18:49] LABS: Iron 17 ug/dL (59-158); Percent Saturation 12.2 % (20-50); Total Iron Binding Capacity 139 mcg/dl; Unsaturated Iron Binding 122 ug/dL (112-347); Vitamin B12 699 pg/mL (232-1245)
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
[2023-01-13 20:30] LABS: Hematocrit 35.5 % (37-53); Mean Corpuscular HGB Conc 33.8 g/dL (30-55); Mean Corpuscular Hemoglobin 30.1 pg (27-33); Mean Platelet Volume 9.4 fL (7.4-10.4); Platelet Count 326 10^3/cmm (157-399); Red Blood Count 3.99 10^6/uL (3.85-5.65); Red Cell Distribution Width 14.8 % (12.1-15.1); White Blood Count 18.26 10^3/uL (3.29-11.43)
[2023-01-13] MEDS: diphenhydrAMINE 25 mg Capsule PO (20:34)
[2023-01-13] MEDS: predniSONE 20 mg Tablet PO (20:34)
[2023-01-13] MEDS: vancomycin 1,250 MG/250 ML PIGGYBACK 200 MG IV (20:36)
[2023-01-13 20:43] LABS: Alanine Aminotransferase 52 U/L (0-41); Albumin Level 2.5 g/dL (3.5-5.2); Alkaline Phosphatase 236 U/L (40-130); Anion Gap 16.2 (5-19); Aspartate Amino Transferase 43 U/L (0-40); Blood Urea Nitrogen 7 mg/dL (6-20); Carbon Dioxide 22 mmol/L (22-29); Chloride 102 mmol/L (98-107); Globulin 2.9 g/dL (1.3-4.6); Glomerular Filtration Rate 238.3 mL/min (90-130); Glucose 104 mg/dL (65-115); Osmolality Calculated 282 mOsm/kg (285-295); Phosphorus 2.4 mg/dL (2.5-4.5); Potassium 3.2 mmol/L (3.5-5.1); Sodium 137 mmol/L (136-145); Total Bilirubin 0.6 mg/dL (0.15-1.2); Total Protein 5.4 g/dL (6.6-8.7)
[2023-01-13 20:45] LABS: Lactic Sepsis W/Reflex 1.1 mmol/L (0.5-2.2)
[2023-01-13] MEDS: meropenem 1,000 MG in sodium chloride 0.9% (plus) 50 ML 100 MG IV (20:47)
[2023-01-13 21:05] LABS: Slide Review Slide Review Perform
[2023-01-13 21:08] LABS: Absolute Eosinophils 0.4 10^3/cmm (0.0-0.7); Absolute Neutrophil 17.2 10^3/cmm (1.4-6.5); Absolute Segmented Neutrophil 15.9 10/cmm (1.6-7.1); Band Neutrophils Absolute 1.3 10^3/cmm (0.0-1.2); Eosinophils 2 %; Lymphocytes 0 %; Monocytes Absolute 0.7 10^3/cmm (0.1-0.6); Platelet Estimate Normal (Normal); Segmented Neutrophils 87 %; Total Cells Counted 100 (0-100); Toxic Granulation 2+
[2023-01-13] MEDS: acetaminophen 325 mg Tablet 650 MG PO (21:43)
[2023-01-14] VITALS (58 sets, daily range): BP systolic 113–166; BP diastolic 74–106; PULSE 75–106; RESP 15–38; TEMP 37.1; O2SAT 90–100
[2023-01-14 01:30] LABS: Adenovirus Not Detected (NOT DETECT); Chlamydia Pneumoniae Not Detected (NOT DETECT); Coronavirus 229E,HKU1,NL63,OC4 Not Detected (NOT DETECT); Human Metapneumovirus Not Detected (NOT DETECT); Human Rhinovirus/Enterovirus Not Detected (NOT DETECT); Influenza A Not Detected (NOT DETECT); Influenza A H1 Not Detected (NOT DETECT); Influenza A H1-2009 Not Detected (NOT DETECT); Influenza A H3 Not Detected (NOT DETECT); Influenza B Not Detected (NOT DETECT); Mycoplasma Pneumoniae Not Detected (NOT DETECT); Parainfluenza Virus Type 1 Not Detected (NOT DETECT); Parainfluenza Virus Type 2 Not Detected (NOT DETECT); Parainfluenza Virus Type 3 Not Detected (NOT DETECT); Parainfluenza Virus Type 4 Not Detected (NOT DETECT); Respiratory Syncytial Virus A Not Detected (NOT DETECT); Respiratory Syncytial Virus B Not Detected (NOT DETECT); SARS-COV-2 Not Detected (NOT DETECT)
[2023-01-14] MEDS: vancomycin 1,250 MG/250 ML PIGGYBACK 200 MG IV ×3 (02:26→18:44)
[2023-01-14] MEDS: meropenem 1,000 MG in sodium chloride 0.9% (plus) 50 ML 100 MG IV ×3 (03:58→20:14)
[2023-01-14 05:07] LABS: Basophils # 0.1 10^3/uL (0.0-0.1); Basophils % 0.6 %; Eosinophils # 0.2 10^3/uL (0.0-0.8); Eosinophils % 0.8 %; Hematocrit 38.7 % (37-53); Lymphocytes # 1.1 10^3/uL (0.8-4.8); Lymphocytes % 5.7 %; Mean Corpuscular HGB Conc 33.1 g/dL (30-55); Mean Corpuscular Hemoglobin 29.8 pg (27-33); Mean Corpuscular Volume 90.2 fl (82-101); Mean Platelet Volume 9.5 fL (7.4-10.4); Monocytes # 0.9 10^3/uL (0.2-0.9); Monocytes % 4.8 %; Neutrophils # 16.68 10^3/uL (1.8-7.7); Neutrophils % 87.2 %; Nucleated Red Blood Cells % 0 %; Platelet Count 351 10^3/cmm (157-399); Red Blood Count 4.29 10^6/uL (3.85-5.65); Red Cell Distribution Width 15.1 % (12.1-15.1); White Blood Count 19.15 10^3/uL (3.29-11.43)
[2023-01-14 05:17] LABS: Estmated Average Glucose 128; Hemoglobin A1C 6.1 % (4.0-6.0)
[2023-01-14 05:26] LABS: Alanine Aminotransferase 51 U/L (0-41); Albumin Level 2.6 g/dL (3.5-5.2); Alkaline Phosphatase 125 U/L (40-130); Anion Gap 17.5 (5-19); Aspartate Amino Transferase 36 U/L (0-40); Blood Urea Nitrogen 9 mg/dL (6-20); Calcium 8.1 mg/dL (8.5-10.5); Carbon Dioxide 22 mmol/L (22-29); Chloride 103 mmol/L (98-107); Globulin 3.3 g/dL (1.3-4.6); Glomerular Filtration Rate 149.2 mL/min (90-130); Glucose 118 mg/dL (65-115); Osmolality Calculated 288 mOsm/kg (285-295); Potassium 3.5 mmol/L (3.5-5.1); Sodium 139 mmol/L (136-145); Total Bilirubin 0.6 mg/dL (0.15-1.2); Total Protein 5.9 g/dL (6.6-8.7)
[2023-01-14 05:27] LABS: Magnesium 1.9 mg/dL (1.7-2.3)
[2023-01-14 05:28] LABS: Chol HDL Ratio 4.63 mg/dL (1.0-5.00); Cholesterol 74 mg/dL (0-200); HDL Cholesterol 16 mg/dL (60-100); LDL Cholesterol Calculated 30 mg/dL (50-129); Triglycerides 139 mg/dL (0-150); VLDL Cholestrol Calculation 28 mg/dL (0-30)
[2023-01-14 05:34] LABS: Slide Review Slide Review Perform
[2023-01-14 05:43] LABS: Folate Level 6.9 ng/mL (4.5-32.2)
[2023-01-14] MEDS: sodium chloride 0.9% 1,000 ML 75 ML IV (05:51)
[2023-01-14] MEDS: paliperidone ER 6 mg Tablet 12 MG PO (10:04)
--- NOTE | 2023-01-14 11:37 | P.PN_ITS ---
Subjective Subjective: I have been requested to assist with the management of Mr. Zuñiga while my colleague Dr. Camilo is out of town. This is 42-year-old male who is postoperative day 7 status post laparoscopic repair of incarcerated ventral hernia. Patient had a prolonged postoperative course monitor with a slow return of bowel function. Patient was noted to have an increase in white count and postoperative day 4, therefore a CT scan of the chest abdomen pelvis was obtained, CT scan was remarkable for evidence of widespread subcutaneous emphysema extending into the anterior abdominal wall at the area of the hernia repair and pneumomediastinum. In addition there was evidence of redness of anterior abdominal wall around the area of the previous hernia repair. After discussion with Dr. Camilo regarding patient. The decision was made to involve pulmonology and internal medicine to assist with the management of the patient. Per Pulmonology internal medicine recommendations antibiotic therapy has been changed, and the patient has been placed on oxygen to help with to the pneumomediastinum. Independent of the specialist, pneumomediastinum and subcutaneous emphysema is likely caused due to barotrauma either during intubation or NG placement. We will decide to transfer patient to higher level of care in order to complete close monitoring. This morning when I evaluated the patient, he states that he feels much better, has been passing gas and having bowel movements. Denies any abdominal wall pain. Vitals/I&O/Wt Last Vital Signs Temp 98.8 F 01/14/23 04:45 Pulse 89 01/14/23 11:25 Resp 20 H 01/14/23 11:25 BP 144/86 01/14/23 08:30 Pulse Ox 94 01/14/23 11:25 O2 Del Method Nasal Cannula 01/14/23 11:25 O2 Flow Rate 1.5 01/14/23 11:25 01/13/23 01/14/23 01/14/23 22:59 06:59 14:59 Intake Total 650 / 820 1000 / 1820 120 / 120 Output Total 1400 / 1400 Balance 650 / 820 -400 / 420 120 / 120 Physical Exam Const: OTHER: Alert and oriented, in good spirits. Resp: OTHER: Normal respiration, normal O2 sat. GI: OTHER: Abdominal wall, still shows evidence of erythema, has not progressed since yesterday. Erythematous blanching in nature, there is mild to moderate tenderness in the abdomen at the level of the hernia site. Urinary Catheter Management: Cardona: Cath Placed During This Visit: yes Reason for Continuing Indwelling Catheter: Accurate Measurement of Urinary Output in Critically Ill Patients Urinary Catheter Date of Insertion: 01/13/23 Urinary Catheter Time of Insertion: 21:16 Data 01/14/23 04:34 01/14/23 04:34 Micro: Microbiology 01/13/23 19:06 Blood Culture - Preliminary Blood SPECIMEN COLLECTED 01/13/23 19:06 Blood Culture - Preliminary Blood SPECIMEN COLLECTED A&P Assessment and plan (1) Pneumomediastinum: (2) Maculopapular rash: (3) Subcutaneous emphysema: (4) Incarcerated incisional hernia: Plan After complete history, physical examination and review of all available clinical data the following is my assessment. I have discussed the plan with consulting specialist. At this point patient will benefit to continuing higher level of care and ICU for close monitoring. Clinically he is feeling better, but laboratory work-up is still shows uptrending white blood cell, more than continue to closely monitor, in case of any clinical changes patient may require reimaging and possible consideration to transfer to higher level of care facility for ICU care. After discussion with Dr. Camilo, at this point there is no significant concern regarding the surgical site as the CT scan of the chest abdomen pelvis with contrast showed no evidence of extravasation of intestinal contrast as well as only postsurgical skin changes intra-abdominal. We will continue to monitor abdominal wall, if there is increasing redness or, i nfection, we may consider the possibility of IR evaluation for possible catheter drainage. Attestations Medical Necessity Statement*: Patient will continue to require higher level of care for pneumomediastinum, extensive subcutaneous emphysema, and postoperative follow-up. Coding Level of Care Code Acute Code for [facility] Diagnoses Pneumomediastinum J98.2 Maculopapular rash R21 Subcutaneous emphysema T79.7XXA Incarcerated incisional hernia K43.0
[2023-01-14] MEDS: ondansetron 2 mg/ML SDV 2 mL 4 MG IVP (16:34)
--- NOTE | 2023-01-14 16:45 | PC.NURSE ---
Patients mother came to nurses station and told nurses that patient was vomiting in room then immediately came back to nurses station and stated that his stomach was leaking. When nurses entered room patient was assisted back in bed. Brown colored emesis noted in bedside commode. Brown colored liquid was also seen leaking from open area on abd. Dr. Granda and Dr. Talbert aware.
--- NOTE | 2023-01-14 16:52 | PM.PN ---
Subjective Subjective: Events overnight. Seen multiple times in the day. Today morning when seen seems to be at baseline with mother at baseline. Denies any nausea, vomiting, headache. Has remained hemodynamically stable. Later in the day got call from the nurse that there seems to be fecal material leakage from the incision site. Confirmed on examination. Discussed in detail with primary surgical team. Patient remained hemodynamically stable and afebrile during the whole course. Patient in no distress. Saturating well on 1 to 1.5 L of oxygen supplementation. Medications: Reviewed: Yes Vitals/I&O/Wt Last Vital Signs Temp 98.8 F 01/14/23 04:45 Pulse 85 01/14/23 14:00 Resp 26 H 01/14/23 14:00 BP 166/106 01/14/23 11:30 Pulse Ox 95 01/14/23 14:00 O2 Del Method Nasal Cannula 01/14/23 11:25 O2 Flow Rate 1.5 01/14/23 11:25 01/14/23 01/14/23 01/14/23 06:59 14:59 22:59 Intake Total 1000 / 1820 360 / 360 Output Total 1400 / 1400 Balance -400 / 420 360 / 360 Physical Exam Narrative: General: No acute distress, AO x3, visibly in discomfort, mildly tachypneic and tachycardic, icteric HEENT: PERRLA, pupils bilaterally equal and reactive Chest: Normal vesicular breath sounds, diffuse rhonchi lower lung casas, subcutaneous air present CVS: S1-S2 regular, muffled heart sounds, no tachycardia, no gallops, no rubs Abdomen: Soft, nontender, no organomegaly, bowel sounds present Neuro: No focal deficits, no facial deformity, AO x3, power 5/5 in all limbs Skin: Diffuse maculopapular rash all over abdomen, chest wall anteriorly and posteriorly, blanchable, also on bilateral hands and legs Urinary Catheter Management: Cardona: Cath Placed During This Visit: yes Reason for Continuing Indwelling Catheter: Accurate Measurement of Urinary Output in Critically Ill Patients Urinary Catheter Date of Insertion: 01/13/23 Urinary Catheter Time of Insertion: 21:16 Data 01/14/23 04:34 01/14/23 04:34 Micro: Microbiology 01/13/23 19:45 MRSA Culture - Final Nose 01/13/23 19:06 Blood Culture - Preliminary Blood SPECIMEN COLLECTED 01/13/23 19:06 Blood Culture - Preliminary Blood SPECIMEN COLLECTED A&P Assessment and plan (1) Incarcerated incisional hernia: (2) SBO (small bowel obstruction): (3) Encounter for postoperative care: (4) Pneumomediastinum: (5) Subcutaneous emphysema: (6) Leukocytosis: (7) Maculopapular rash: (8) Alcohol dependence, uncomplicated: (9) Enterocutaneous fistula: Plan 42-year-old gentleman who underwent incisional hernia repair and lysis of additions on 01/07 with surgical team developing leukocytosis, tachycardia, generalized maculopapular rash, distention of abdomen found to have subcutaneous emphysema and pneumomediastinum. Pneumomediastinum: CT results appreciated. No pneumothorax. Possible etiology surgical perforation versus perforation of esophagus during NG tube placement versus barotrauma during intubation for procedure. Discussed in detail with pulmonology and primary surgical team. Discussed concerns for possible perforation at the site of operation though there is no extravasation of contrast seen at the esophagus level or in the GI tract makes surgical complication or perforation of esophagus less likely. Patient does have a fluid collection seen on CT abdomen but as per surgical team consistent with postsurgical changes. Cannot rule out barotrauma during intubation. For now patient is hemodynamically stable, afebrile saturating okay on room air. For now plan will be for conservative management with oxygen supplementation keeping saturation over 95%. Check echocardiogram to rule out pericardial effusion. SIRS response: With tachycardia and tachypnea. Most likely in setting of pneumomediastinum. Cannot rule out mediastinitis. Pneumonia looks less likely on CT chest. Check MRSA swab, blood culture, procalcitonin, urinalysis, lactate, urine culture, sputum culture, respiratory viral panel. For now broaden coverage from Zosyn to IV meropenem and IV vancomycin. Start on normal saline at 75 cc/h. Cardona catheterization. History of alcohol abuse Maculopapular rash: Discussed in detail with dermatology. Given the diffuse nature and timeline baez even though patient has mild eosinophilia dress syndrome is less likely. Cannot rule out AGES. For now most likely drug eruption rash. Zosyn stopped. Medical reconciliation done. We will give a trial of Benadryl and prednisone 20 mg one-time. Continue ICU care. Full code NPO. Protonix for PUD prophylaxis SCDs for DVT prophylaxis. Hold off on heparin given possible need of going back to the OR if patient continues to worsen or show sign of perforation. Plan for the day: Patient seems to have developed enterocutaneous fistula. Cannot rule out fecal peritonitis though patient is hemodynamically stable and in no distress. Continue with vancomycin and meropenem. Add IV fluconazole. Keep NPO. Discussed in detail with surgery. Will defer the further plan of OR ex lap washout versus conservative versus transferred to a higher center as per primary team. Discussed in detail with patient's primary caregiver/mother at bedside. For now continue oxygen supplementation maintaining saturation over 95 % Echocardiogram pending. Discussed rash in detail with outpatient document preparer microfilming. Concerning for possible drug reaction rash. We will continue to monitor. Care plan discussed in detail with patient and patient's mother at bedside. Care discussed in detail with Dr. Braulio Bauman and Dr. Saleh. Thank you for consulting us in care of Mr. Zuñiga. Please call back with any questions. Attestations Medical Necessity Statement*: As per primary team. Diagnoses Incarcerated incisional hernia K43.0 SBO (small bowel obstruction) K56.609 Encounter for postoperative care Z48.89 Pneumomediastinum J98.2 Subcutaneous emphysema T79.7XXA Leukocytosis D72.829 Maculopapular rash R21 Alcohol dependence, uncomplicated F10.20 Enterocutaneous fistula K63.2
--- NOTE | 2023-01-14 17:59 | XRR_ITS ---
PROCEDURE INFORMATION: Exam: XR Chest Exam date and time: 01/14/2023 6:25 PM Age: 42 years old Clinical indication: Injury or trauma; Other: N/a; Additional info: Picc line TECHNIQUE: Imaging protocol: Radiologic exam of the chest. Views: 1 view. COMPARISON: CT chest abdpel w/*[id number] 01/13/2023 9:24 AM FINDINGS: Tubes, catheters and devices: Left PICC has been inserted with the tip projecting over the superior vena cava. Lungs: Patchy opacity at the left lung base may reflect atelectasis. Pleural spaces: No pleural effusion. No pneumothorax. Heart/Mediastinum: Unchanged pneumomediastinum. Bones/joints: Age appropriate. Gastrointestinal tract: Unchanged abdominal wall and chest wall pneumatosis. XR/XR chest 1V portable [id number] IMPRESSION: Left PICC has been inserted in satisfactory position.
--- NOTE | 2023-01-14 18:00 | PC.NURSE ---
PICC line placed. PICC nurse referred to ICU for PICC placement for TPN. Left basilic vein assessed, noted to be 4.5 mm, straight, and apparent best choice for placement. Informed consent obtained from patient. Risks and benefits discussed. Using sterile technique and MST, left basilic vein accessed x 1 stick. Mid-arm circumference measured 10 cm from left AC 29 cm. Trimmed cath 41 cm with 1 cm external length noted. Line secured with stat-lock. Insertion site covered with Biopatch and TSM. CXR shows tip to appear to be in SVC. Waiting on radiologist to read report. Report given to bedside nurse, [place].
[2023-01-14 18:34] LABS: Vancomycin Trough 8.6 ug/mL (10-15)
[2023-01-14] MEDS: pantoprazole 40 mg SDV IVP (18:44)
--- NOTE | 2023-01-14 19:34 | XRR_ITS ---
PROCEDURE INFORMATION: Exam: XR Chest Exam date and time: 01/14/2023 7:45 PM Age: 42 years old Clinical indication: Injury or trauma; Other: N/a; Additional info: Ngt placement TECHNIQUE: Imaging protocol: Radiologic exam of the chest. Views: 1 view. COMPARISON: CR (CHEST, ) 01/14/2023 6:25 PM FINDINGS: Tubes, catheters and devices: Enteral tube is in satisfactory position. Lungs: Patchy opacities at the left lung base may reflect atelectasis. Pleural spaces: No pleural effusion. No pneumothorax. Heart/Mediastinum: Unchanged pneumomediastinum. Bones/joints: Age appropriate. Gastrointestinal tract: Nonobstructive bowel gas pattern. XR/XR chest 1V [id number] IMPRESSION: Enteral tube is in satisfactory position.
[2023-01-14] MEDS: lactated ringers 1,000 ML 999 ML IV (19:48)
[2023-01-14] MEDS: HYDROmorphone 1 mg/mL INJ 1 mL IVP ×2 (19:48→22:24)
--- NOTE | 2023-01-14 19:50 | P.PN_ITS ---
Subjective Subjective: Patient was evaluated by me this afternoon, there was a report from nursing staff the patient had an episode of vomiting and also noticed some feculent discharge from his abdominal wall. Upon evaluation patient states that he just decided to get out of bed and after getting up he fell need to vomit, he had 1 large episode of emesis. After these episodes of masses, he also noticed swelling of his gallon with what appeared to be feculent material. Otherwise, he denies severe abdominal pain, is resting in bed. Vitals/I&O/Wt Last Vital Signs Temp 98.8 F 01/14/23 04:45 Pulse 85 01/14/23 14:00 Resp 18 01/14/23 19:48 BP 166/106 01/14/23 11:30 Pulse Ox 95 01/14/23 14:00 O2 Del Method Nasal Cannula 01/14/23 11:25 O2 Flow Rate 1.5 01/14/23 11:25 01/14/23 01/14/23 01/14/23 06:59 14:59 22:59 Intake Total 1000 / 1820 610 / 610 1000 / 1610 Output Total 1400 / 1400 Balance -400 / 420 610 / 610 1000 / 1610 Physical Exam Narrative: Constitutional: Alert and oriented, appears a stable. Cardiovascular: Heart rate in the 80s, BP in normal limits. GI: No peritoneal signs, there is minimal tenderness in the abdomen, there is tenderness on the anterior abdominal wall at the level of the previously visualized fluid collection, there is 1/8 inch circular defect on anterior abdominal wall which has gas and feculent drainage. There is persistent erythema of the anterior abdominal wall. Urinary Catheter Management: Cardona: Cath Placed During This Visit: yes Reason for Continuing Indwelling Catheter: Accurate Measurement of Urinary Output in Critically Ill Patients Urinary Catheter Date of Insertion: 01/13/23 Urinary Catheter Time of Insertion: 21:16 Data 01/14/23 04:34 01/14/23 04:34 Micro: Microbiology 01/13/23 19:06 Blood Culture - Preliminary Blood NEGATIVE TO DATE 01/13/23 19:06 Blood Culture - Preliminary Blood NEGATIVE TO DATE 01/13/23 19:45 MRSA Culture - Final Nose A&P Assessment and plan (1) Subcutaneous emphysema: (2) Pneumomediastinum: (3) Incarcerated incisional hernia: (4) SBO (small bowel obstruction): (5) Enterocutaneous fistula: Plan After complete history, physical examination and review of all available clinical data the following is my assessment. Patient presented with an incarcerated hernia 7 days ago, was taken to the OR by Dr. Camilo who proceeded with the laparoscopic ventral hernia repair with mesh. I am currently assisting with the care of this patient, as Dr. Camilo is currently out of town. Patient had a very slow postsurgical course characterized by ileus, induration and redness of the abdominal wall, by postoperative day 3 he was able to be started on clears, was having bowel function. On postoperative day 5 he was noted to have an increase in the white count to 13, it trended up to 18 of the following day at this point Dr. Camilo obtained a CT of the chest abdomen and pelvis with IV contrast, CT scan showed evidence of extensive pneumomediastinum, subcutaneous emphysema and complex fluid collection at the level of the previous hernia cell in the anterior abdominal wall. At the time pulmonology and internal medicine was consulted, per pulmonology evaluation to consider that pneumomediastinum and subcutaneous emphysema may be due to barotrauma closed during the operation either during intubation or subsequent NG tube insertion. In addition they identified a possible pneumonia and atelectasis, recommended starting the IV antibiotics. Is at this point that I was made aware of the patient, after my initial evaluation I considered that patient will be better served in a higher level of care, I transfer the patient to the critical care unit for close monitoring, with an escalated antibiotic coverage and continue conservative management. In the afternoon of postoperative day 7 patient was noted to have 1 episode of emesis and the anterior abdominal wall was noted to be draining feculent material. At this point I reevaluated the patient, clinically he remained stable, abdomen was moderately distended, there is where the drainage worse happening from the anterior abdominal wall corresponding to the area in the CT scan were a previous air-fluid level collection was noted. The clinical picture is likely consistent with an early enterocutaneous fistula formation. I informed of the findings to Dr. Camilo and subsequently I talked to the family members explained the gravity of the situation, I have also explained that the patient will likely require extensive surgery, with high risk for morbidity, mortality and probable need for open abdomen and prolonged ICU stay with need for ventilatory management. I explained that I think is in the patient there is interest to be transferred to higher level of care facility with surgical critical care nutrition aides teacher, colorectal team and IR availability to maximize the possibility of the patient having a good outcome. I have explained to the family that indicates that transfer to higher level of care facility takes a long period of time, there is a chance that patient will require emergent surgery at our institution I have explained this will be our last resort carrying a very high risk of mortality and mortality. In the interim I have requested a PICC line placement for the patient to have a secure central access in case of need of large volume resuscitation, I have made the patient n.p.o. and Place an ostomy bag over the draining fistula tract. The transfer process was initiated, I discussed the case with Dr. Smallwood at [facility] in [place], Dr. Smallwood accepted the transfer and agree with the need for transfer to higher level of care, additionally he had requested for NG tube placement. Per my conversation with the transfer center, at the moment they are really locating a bed for the patient to be transferred, once patient is accepted we will likely proceed with urgent transfer for possible management and surgical intervention. In the interim we are going to continue broad-spectrum antibiotics, adequate resuscitation and monitoring in the intensive care unit. I Placed 92 as requested by the accepting physician, initial output was about 300 cc of intes tinal content. At the time of this documentation, patient remains a stable, no active signs concerning for emergent need of operation or clinical deterioration. Attestations Medical Necessity Statement*: Patient requires highest level of care, due to high risk for significant clinical deterioration, patient at the moment with possible early enterocutaneous fistula, he could also be developing sepsis, will require to continue on ICU care, until transfer process is completed. Coding Level of Care Code Acute Code for Chg Fwd Diagnoses Subcutaneous emphysema T79.7XXA Pneumomediastinum J98.2 Incarcerated incisional hernia K43.0 SBO (small bowel obstruction) K56.609 Enterocutaneous fistula K63.2
[2023-01-14] MEDS: fluconazole premix 100 MG in empty flexible container 1 EACH 50 MG IV (20:13)
--- NOTE | 2023-01-14 20:15 | P.PN_ITS ---
Subjective Subjective: Seen patient today afternoon, lying on his bed Patient's mother at bedside Staff reported patient went for a walk with physical therapy and just returned to bed Does not appear to be in distress, saturating 97% on 2 L supplemental oxygen Labs showed increasing white count to 19 K Generalized maculopapular rash is more diffuse and less intense than yesterday Medications: Reviewed: Yes Vitals/I&O/Wt Last Vital Signs Temp 98.8 F 01/14/23 04:45 Pulse 85 01/14/23 14:00 Resp 18 01/14/23 19:48 BP 166/106 01/14/23 11:30 Pulse Ox 95 01/14/23 14:00 O2 Del Method Nasal Cannula 01/14/23 11:25 O2 Flow Rate 1.5 01/14/23 11:25 01/14/23 01/14/23 01/14/23 06:59 14:59 22:59 Intake Total 1000 / 1820 610 / 610 1050 / 1660 Output Total 1400 / 1400 Balance -400 / 420 610 / 610 1050 / 1660 Physical Exam Narrative: General: alert, NAD HEENT: conj clear, EOMI, PERRL, mmm, Neck: supple, no meningismus Heme: no cervical LAP Respiratory: Inspection: No visible deformity of the chest wall Palpation: Trachea is mildly deviated to the right, bilateral symmetric expansion Percussion: Bilateral tympanic percussion note both anterior and posteriorly Auscultation: Bilateral clear to auscultation both anterior and posteriorly, no crackles wheezing or rhonchi Cardiovascular: rrr, nl s1s2, no mrg Abdomen: Distended paraumbilical area, tender on palpation, skin over the hernia repair site is erythematous Extremities: pulses +, no edema, no c/c : no CVA tenderness Skin: Diffuse maculopapular rash MSK: no back or neck pain Neurologic: grossly intact Urinary Catheter Management: Cardona: Cath Placed During This Visit: yes Reason for Continuing Indwelling Catheter: Accurate Measurement of Urinary Output in Critically Ill Patients Urinary Catheter Date of Insertion: 01/13/23 Urinary Catheter Time of Insertion: 21:16 Data 01/14/23 04:34 01/14/23 04:34 Other Labs: Radiology Impressions Abdomen/Pelvis CT 01/06/23 20:45 IMPRESSION: 1. Small-bowel obstruction due to a left periumbilical hernia containing an obstructed loop of small bowel. 2. Fluid distended stomach. Gastric tube placement should be considered. KUB X-Ray 01/09/23 12:52 IMPRESSION: The gastric tube tip overlies the gastric body level. Chest/Abdomen X-ray 01/10/23 17:01 IMPRESSION: 1. There is an enteric tube present with distal tip in the stomach. 2. Dilated small bowel loops seen in the upper abdomen. 3. Mild cardiomegaly is noted. 4. Low lung volumes bilaterally causing crowding of the lung markings. Mild compressive atelectasis at the lung bases. 5. Small bilateral pleural effusions. Laboratory Results WBC 19.15 10^3/uL (3.29-11.43) H 01/14/23 04:34 RBC 4.29 10^6/uL (3.85-5.65) 01/14/23 04:34 Hgb 12.80 g/dL (11.27-16.99) 01/14/23 04:34 Hct 38.7 % (37-53) 01/14/23 04:34 MCV 90.2 fl (82-101) 01/14/23 04:34 MCH 29.8 pg (27-33) 01/14/23 04:34 MCHC 33.1 g/dL (30-55) 01/14/23 04:34 RDW 15.1 % (12.1-15.1) 01/14/23 04:34 Plt Count 351 10^3/cmm (157-399) 01/14/23 04:34 MPV 9.5 fL (7.4-10.4) 01/14/23 04:34 Neut % (Auto) 87.2 % 01/14/23 04:34 Lymph % (Auto) 5.7 % 01/14/23 04:34 [place] % (Auto) 4.8 % 01/14/23 04:34 Eos % (Auto) 0.8 % 01/14/23 04:34 Baso % (Auto) 0.6 % 01/14/23 04:34 Neut # (Auto) 16.68 10^3/uL (1.8-7.7) H 01/14/23 04:34 Lymph # (Auto) 1.1 10^3/uL (0.8-4.8) 01/14/23 04:34 [place] # (Auto) 0.9 10^3/uL (0.2-0.9) 01/14/23 04:34 Eos # (Auto) 0.2 10^3/uL (0.0-0.8) 01/14/23 04:34 Baso # (Auto) 0.1 10^3/uL (0.0-0.1) 01/14/23 04:34 Nucleated RBC % (auto) 0 % 01/14/23 04:34 Total Counted 100 (0-100) 01/13/23 19:45 Atypical Lymphs % 0.0 % (0-5) 01/13/23 19:45 Absolute Neutrophils 17.2 10^3/cmm (1.4-6.5) H 01/13/23 19:45 Segmented Neutrophils 87 % 01/13/23 19:45 Abs Segm Neuts (Man) 15.9 10/cmm (1.6-7.1) H 01/13/23 19:45 Band Neutrophils 7.0 % 01/13/23 19:45 Abs Band Neuts (Man) 1.3 10^3/cmm (0.0-1.2) H 01/13/23 19:45 Absolute Lymphocytes 0.0 10^3/cmm (1.2-3.4) L 01/13/23 19:45 Lymphocytes (Manual) 0 % 01/13/23 19:45 Monocytes (Manual) 4.0 % 01/13/23 19:45 Absolute Monocytes 0.7 10^3/cmm (0.1-0.6) H 01/13/23 19:45 Eosinophils (Manual) 2 % 01/13/23 19:45 Absolute Eosinophils 0.4 10^3/cmm (0.0-0.7) 01/13/23 19:45 Basophils (Manual) 0.0 % 01/13/23 19:45 Absolute Basophils 0.0 10^3/cmm (0.0-0.2) 01/13/23 19:45 Metamyelocytes 0.0 % 01/13/23 19:45 Myelocytes 0.0 % 01/13/23 19:45 Promyelocytes 0.0 % 01/13/23 19:45 Nucleated RBCs # 0.0 /100WBC 01/14/23 04:34 Toxic Granulation 2+ H 01/13/23 19:45 Platelet Estimate Normal (Normal) 01/13/23 19:45 ESR 4 mm/hr (0-10) 01/06/23 19:34 Sodium 139 mmol/L (136-145) 01/14/23 04:34 Potassium 3.5 mmol/L (3.5-5.1) 01/14/23 04:34 Chloride 103 mmol/L (98-107) 01/14/23 04:34 Carbon Dioxide 22 mmol/L (22-29) 01/14/23 04:34 Anion Gap 17.5 (5-19) 01/14/23 04:34 BUN 9 mg/dL (6-20) 01/14/23 04:34 Creatinine 0.6 mg/dL (0.7-1.2) L 01/14/23 04:34 GFR Calculation 149.2 mL/min (90-130) H 01/14/23 04:34 Glucose 118 mg/dL (65-115) H 01/14/23 04:34 Estimat Average Glucose 128 01/14/23 04:34 Hemoglobin A1c 6.1 % (4.0-6.0) H 01/14/23 04:34 Calculated Osmolality 288 mOsm/kg (285-295) 01/14/23 04:34 Lactic Acid 1.1 mmol/L (0.5-2.2) 01/13/23 19:45 Calcium 8.1 mg/dL (8.5-10.5) L 01/14/23 04:34 Phosphorus 2.4 mg/dL (2.5-4.5) L 01/13/23 19:45 Magnesium 1.9 mg/dL (1.7-2.3) 01/14/23 04:34 Iron 17 ug/dL (59-158) L 01/13/23 05:03 TIBC 139 mcg/dl 01/13/23 05:03 % Saturation 12.2 % (20-50) L 01/13/23 05:03 Unsat Iron Binding 122 ug/dL (112-347) 01/13/23 05:03 Total Bilirubin 0.6 mg/dL (0.15-1.2) 01/14/23 04:34 AST 36 U/L (0-40) 01/14/23 04:34 ALT 51 U/L (0-41) H 01/14/23 04:34 Alkaline Phosphatase 125 U/L (40-130) 01/14/23 04:34 C-Reactive Protein 6.5 mg/L (0.0-4.9) H 01/06/23 19:34 Total Protein 5.9 g/dL (6.6-8.7) L 01/14/23 04:34 Albumin 2.6 g/dL (3.5-5.2) L 01/14/23 04:34 Globulin 3.3 g/dL (1.3-4.6) 01/14/23 04:34 Triglycerides 139 mg/dL (0-150) 01/14/23 04:34 Cholesterol 74 mg/dL (0-200) 01/14/23 04:34 LDL Cholesterol, Calc 30 mg/dL (50-129) L 01/14/23 04:34 Total VLDL Cholesterol 28 mg/dL (0-30) 01/14/23 04:34 HDL Cholesterol 16 mg/dL (60-100) L 01/14/23 04:34 Cholesterol/HDL Ratio 4.63 mg/dL (1.0-5.00) 01/14/23 04:34 Lipase 16 U/L (13-60) 01/06/23 19:34 Vitamin B12 699 pg/mL (232-1245) 01/13/23 05:03 Folate 6.9 ng/mL (4.5-32.2) 01/14/23 04:34 TSH 2.06 uIU/mL (0.27-4.20) 01/13/23 05:03 Urine Color Yellow (Yellow) 01/07/23 08:27 Urine Appearance Clear (CLEAR) 01/07/23 08:27 Urine pH 6.5 (5-7) 01/07/23 08:27 Ur Specific Industry 1.010 (1.005-1.030) 01/07/23 08:27 Urine Protein 1+ (Negative) H 01/07/23 08:27 Urine Glucose (UA) Norm (Normal) 01/07/23 08:27 Urine Ketones 2+ (Negative) H 01/07/23 08:27 Urine Blood Neg (Negative) 01/07/23 08:27 Urine Nitrate Negative (Negative) 01/07/23 08:27 Urine Bilirubin 1+ (Negative) H 01/07/23 08:27 Urine Urobilinogen Norm mg/dL (Negative) 01/07/23 08:27 Ur Leukocyte Esterase Negative (Negative) 01/07/23 08:27 Urine RBC 0-4 /hpf (0-2) H 01/07/23 08:27 Urine WBC 0-4 /hpf (0-5) H 01/07/23 08:27 Ur Squamous Epith Cells 0-4 /hpf (0-5) H 01/07/23 08:27 Amorphous Sediment Not Reportable 01/07/23 08:27 Urine Bacteria Trace /hpf (NONE) 01/07/23 08:27 Urine Mucus 1+ /hpf 01/07/23 08:27 Vancomycin Trough 8.6 ug/mL (10-15) L 01/14/23 17:38 Coronavirus 229E (PCR) Not detected (NOT DETECT) 01/13/23 03:39 SARS-CoV-2 (PCR) Not detected (NOT DETECT) 01/13/23 03:39 SARS-CoV-2 Ag (Rapid) negative (Negative) 01/13/23 16:00 Blood Type O Positive 01/14/23 16:45 Rho(D) Type Positive 01/14/23 16:45 Antibody Screen Negative 01/14/23 16:45 Micro: Microbiology 01/13/23 19:06 Blood Culture - Preliminary Blood NEGATIVE TO DATE 01/13/23 19:06 Blood Culture - Preliminary Blood NEGATIVE TO DATE 01/13/23 19:45 MRSA Culture - Final Nose A&P Assessment and plan (1) Pneumomediastinum: Day 6-CT evidence of diffuse extensive pneumomediastinum with air extending to thoracic inlet, additional diffuse subcutaneous air in lower chest wall with diffuse subcutaneous emphysema and abdominal wall Patient denied any violent coughing episodes The only plausible reason is possible barotrauma with intubation 0r or NG tube- however there was no evidence of pneumomediastinum on chest x-ray on 01/10/2023- 3 days after the surgery Also there is diffuse subcutaneous air in the lower chest wall with diffuse subcutaneous emphysema in the abdominal wall-possibly related to post surgery Currently patient is hemodynamically stable and requiring 2 L supplemental oxygen We will continue close monitoring (2) Subcutaneous emphysema: Subcutaneous emphysema of lower chest wall as well as anterior abdominal wall- probably from from surgical site (3) Incarcerated umbilical hernia: ?01/07/2023 emergently.? He underwent laparoscopic repair of incarcerated incisional hernia with mesh along with extensive lysis of adhesions by Dr Camilo. He was passing flatus and tolerating full liquids CT abdomen pelvis showed no evidence of obstruction General surgery continues to follow (4) Leukocytosis: Patient has temperature spikes and WBC [address] chest showed bilateral lower lobe atelectasis-possible source of pneumonia; at this point have to be conservative with incentive spirometry due to pneumomediastinum CT abdomen pelvis showed air-fluid level at surgical site-surgery to follow-up Lactic acid normal Pending blood cultures; negative MRSA nares broaden coverage to vancomycin and meropenem and antifungals (5) Maculopapular rash: Suspect [id number] Zosyn; switched to vancomycin and meropenem There is still diffuse maculopapular rash-but is looking more spread out and less erythematous today Attestations Medical Necessity Statement*: Need close monitoring in ICU for pneumomediastinum and incarcerated bowel surgery with ongoing sepsis- Time Spent in Patient Care: Greater than 35 minutes (>than 50% of time spent in counselling and/or direct pt care on unit) . Critical Care Time: The high probability of a clinically significant, sudden or life threatening deterioration of the patient's [pulmonary] system(s) required my full and direct attention, intervention and personal management. The critical care time is as shown. This time is in addition to time spent performing any reported procedures but includes the following: [x] Data and vital sign review and interpretation [x] Patient assessment, examination and intervention [x] Documentation [x] Medication orders and management Critical Care Time (min): 49 Coding Level of Care Code Acute Code for Chg Fwd Diagnoses Pneumomediastinum J98.2 Subcutaneous emphysema T79.7XXA Incarcerated umbilical hernia K42.0 Leukocytosis D72.829 Maculopapular rash R21 Time Spent (min) 49
[2023-01-14] MEDS: lactated ringers 1,000 ML 100 ML IV (20:50)
--- NOTE | 2023-01-14 23:43 | PC.NURSE ---
[facility] transfer center called at 2200 to get update on pt. This nurse was notified that the pt would likely not have a bed assignment tonight.
--- NOTE | 2023-01-14 23:47 | PC.NURSE ---
Pt repeatedly educated on reasons to stay in bed and not to disconnect monitoring wires. Pt found out of bed and assisted back to bed and reconnected to monitor.
--- NOTE | 2023-01-15 00:22 | PC.NURSE ---
[facility] transfer center called with a room number. Room number was given to pt when transfer papers were filled out. Pt stated he would be letting his mother know he was going to room 6582 bed 1. Report called to Amanda at [facility] Trauma Floor. [facility] contacted.
[2023-01-15] MEDS: ondansetron 2 mg/ML SDV 2 mL 4 MG IVP (00:32)
[2023-01-15] MEDS: HYDROmorphone 1 mg/mL INJ 1 mL IVP (00:33)
[2023-01-15 01:36] VITALS: PULSE 80; RESP 17; TEMP 36.8; O2SAT 95
--- NOTE | 2023-01-15 08:34 | P.TS_ITS ---
Transfer Summary Providers Date of Admission: 01/06/23 23:36 Date of Discharge/Transfer: 01/15/23 Attending Provider at Admission: Sunil Camilo DO Attending Provider at Transfer: Sunil Camilo DO Transfering Provider (if different): Stoney Garcia Consults: Pulmonology, Critical care, Internal Medicine Transfer Plans: Anticipated date of transfer: 01/15/23 . Additional transfer facility information: Patient transferred to [facility] in [place], under the care of surgical critical care, Dr. Smallwood . Diagnoses at Discharge Discharge Diagnosis (1) Pneumomediastinum: Status: Acute (2) Subcutaneous emphysema: Status: Acute (3) Incarcerated umbilical hernia: Status: Acute (4) Leukocytosis: Status: Acute (5) Maculopapular rash: Status: Acute (6) Enterocutaneous fistula: Status: Acute Reason for Visit Reason for Visit abdomin pain, vomitting Hospital Course Hospital Course AThis is a 42 y/o M with history of previous laparotomy and ventral hernia who presented to the hospital with incarcerated ventral incisional hernia. Patient was taken to the OR by Dr. Camilo for a laparoscopic ventral hernia repair with mesh which was done without noted immediate complications. patient had a slow postoperative course with noted ileus, by POD3 he was tolerating liquids and having bowel function. On postoperative day 5 he was noted to have an increase in the white count to 13, it trended up to 18 of the following day at this point a CT of the chest abdomen and pelvis with IV contrast was obtained, CT scan showed evidence of extensive pneumomediastinum, subcutaneous emphysema and complex fluid collection at the level of the previous hernia cell in the anterior abdominal wall. At the time pulmonology and internal medicine was consulted, per pulmonology evaluation to consider that pneumomediastinum and subcutaneous emphysema may be due to barotrauma closed during the operation either during intubation or subsequent NG tube insertion. In addition they identified a possible pneumonia and atelectasis, recommended starting the IV antibiotics. Is at this point that I was made aware of the patient, after my initial evaluation I considered that patient will be better served in a higher level of care, I transfer the patient to the critical care unit for close monitoring, with an escalated antibiotic coverage and continue conservative management. In the afternoon of postoperative day 7 patient was noted to have 1 episode of emesis and the anterior abdominal wall was noted to be draining feculent material. At this point I reevaluated the patient, clinically he remained stable, abdomen was moderately distended, there is drainage happening from the anterior abdominal wall corresponding to the area in the CT scan were a previous air-fluid level collection was noted. The clinical picture is likely consistent with an early enterocutaneous fistula formation. I informed of the findings to Dr. Camilo and subsequently I talked to the family members explained the gravity of the situation, I have also explained that the patient will likely require extensive surgery, with high risk for morbidity, mortality and probable need for open abdomen and prolonged ICU stay with need for ventilatory management. I explained that is in the patient best interest to be transferred to higher level of care facility with surgical critical care customer support consultant, colorectal team and IR availability to maximize the possibility of the having a good outcome. A PICC line was placed for the patient to have a secure central access in case of need of large volume resuscitation, patient made n.p.o. and ostomy bag placed over the draining fistula tract. The transfer process was initiated, I discussed the case with Dr. Smallwood at [facility] in [place], Dr. Smallwood accepted the transfer and agree with the need for transfer to higher level of care, additionally he had requested for NG tube placement. I Placed NG as requested by the accepting physician, initial output was about 300 cc of intestinal content. At the time of transfer patient was clinically stable, without evidence of hemodinamic deterioration, no contraindication for transfer from the surgical standpoint. Family was informed of succesful transfer placement Physical Exam Urinary Catheter Management: Cardona: Cath Placed During This Visit: yes Reason for Continuing Indwelling Catheter: Accurate Measurement of Urinary Output in Critically Ill Patients Urinary Catheter Date of Insertion: 01/13/23 Urinary Catheter Time of Insertion: 21:16 TS Data Studies Completed and Pending Pending at discharge Category Date Time Status IR fistula/abscess/sinus [id number] Routine Exams 01/14/23 19:49 Ordered Blood Culture Stat Lab 01/13/23 19:06 Results Labs from last 24 hours 01/14/23 01/14/23 17:38 16:45 Vancomycin Trough 8.6 L Blood Type O Positive Rho(D) Type Positive Antibody Screen Negative Completed Studies During Hospitalization Category Date Time Status CT abdomen pelvis w con* [id number] Stat Cat Scan 01/06/23 20:[address] chest abdpel w/*[id number] Stat Cat Scan 01/13/23 08:03 Completed CXRP [XR chest 1V portable [id number]] Routine Exams 01/14/23 17:59 Completed XR KUB [id number] Routine Exams 01/09/23 12:52 Completed XR KUB [id number] Stat Exams 01/06/23 18:58 Completed XR acute abdomen series [id number] Routine Exams 01/10/23 17:01 Completed XR chest 1V [id number] Stat Exams 01/06/23 23:51 Completed XR chest 1V [id number] Stat Exams 01/14/23 19:34 Completed Pathology: Surgical [PTH] Routine Pth 01/07/23 16:03 Completed Laboratory Last Values WBC 19.15 10^3/uL (3.29-11.43) H 01/14/23 04:34 RBC 4.29 10^6/uL (3.85-5.65) 01/14/23 04:34 Hgb 12.80 g/dL (11.27-16.99) 01/14/23 04:34 Hct 38.7 % (37-53) 01/14/23 04:34 MCV 90.2 fl (82-101) 01/14/23 04:34 MCH 29.8 pg (27-33) 01/14/23 04:34 MCHC 33.1 g/dL (30-55) 01/14/23 04:34 RDW 15.1 % (12.1-15.1) 01/14/23 04:34 Plt Count 351 10^3/cmm (157-399) 01/14/23 04:34 MPV 9.5 fL (7.4-10.4) 01/14/23 04:34 Neut % (Auto) 87.2 % 01/14/23 04:34 Lymph % (Auto) 5.7 % 01/14/23 04:34 [place] % (Auto) 4.8 % 01/14/23 04:34 Eos % (Auto) 0.8 % 01/14/23 04:34 Baso % (Auto) 0.6 % 01/14/23 04:34 Neut # (Auto) 16.68 10^3/uL (1.8-7.7) H 01/14/23 04:34 Lymph # (Auto) 1.1 10^3/uL (0.8-4.8) 01/14/23 04:34 [place] # (Auto) 0.9 10^3/uL (0.2-0.9) 01/14/23 04:34 Eos # (Auto) 0.2 10^3/uL (0.0-0.8) 01/14/23 04:34 Baso # (Auto) 0.1 10^3/uL (0.0-0.1) 01/14/23 04:34 Nucleated RBC % (auto) 0 % 01/14/23 04:34 Total Counted 100 (0-100) 01/13/23 19:45 Atypical Lymphs % 0.0 % (0-5) 01/13/23 19:45 Absolute Neutrophils 17.2 10^3/cmm (1.4-6.5) H 01/13/23 19:45 Segmented Neutrophils 87 % 01/13/23 19:45 Abs Segm Neuts (Man) 15.9 10/cmm (1.6-7.1) H 01/13/23 19:45 Band Neutrophils 7.0 % 01/13/23 19:45 Abs Band Neuts (Man) 1.3 10^3/cmm (0.0-1.2) H 01/13/23 19:45 Absolute Lymphocytes 0.0 10^3/cmm (1.2-3.4) L 01/13/23 19:45 Lymphocytes (Manual) 0 % 01/13/23 19:45 Monocytes (Manual) 4.0 % 01/13/23 19:45 Absolute Monocytes 0.7 10^3/cmm (0.1-0.6) H 01/13/23 19:45 Eosinophils (Manual) 2 % 01/13/23 19:45 Absolute Eosinophils 0.4 10^3/cmm (0.0-0.7) 01/13/23 19:45 Basophils (Manual) 0.0 % 01/13/23 19:45 Absolute Basophils 0.0 10^3/cmm (0.0-0.2) 01/13/23 19:45 Metamyelocytes 0.0 % 01/13/23 19:45 Myelocytes 0.0 % 01/13/23 19:45 Promyelocytes 0.0 % 01/13/23 19:45 Nucleated RBCs # 0.0 /100WBC 01/14/23 04:34 Toxic Granulation 2+ H 01/13/23 19:45 Platelet Estimate Normal (Normal) 01/13/23 19:45 ESR 4 mm/hr (0-10) 01/06/23 19:34 Sodium 139 mmol/L (136-145) 01/14/23 04:34 Potassium 3.5 mmol/L (3.5-5.1) 01/14/23 04:34 Chloride 103 mmol/L (98-107) 01/14/23 04:34 Carbon Dioxide 22 mmol/L (22-29) 01/14/23 04:34 Anion Gap 17.5 (5-19) 01/14/23 04:34 BUN 9 mg/dL (6-20) 01/14/23 04:34 Creatinine 0.6 mg/dL (0.7-1.2) L 01/14/23 04:34 GFR Calculation 149.2 mL/min (90-130) H 01/14/23 04:34 Glucose 118 mg/dL (65-115) H 01/14/23 04:34 Estimat Average Glucose 128 01/14/23 04:34 Hemoglobin A1c 6.1 % (4.0-6.0) H 01/14/23 04:34 Calculated Osmolality 288 mOsm/kg (285-295) 01/14/23 04:34 Lactic Acid 1.1 mmol/L (0.5-2.2) 01/13/23 19:45 Calcium 8.1 mg/dL (8.5-10.5) L 01/14/23 04:34 Phosphorus 2.4 mg/dL (2.5-4.5) L 01/13/23 19:45 Magnesium 1.9 mg/dL (1.7-2.3) 01/14/23 04:34 Iron 17 ug/dL (59-158) L 01/13/23 05:03 TIBC 139 mcg/dl 01/13/23 05:03 % Saturation 12.2 % (20-50) L 01/13/23 05:03 Unsat Iron Binding 122 ug/dL (112-347) 01/13/23 05:03 Total Bilirubin 0.6 mg/dL (0.15-1.2) 01/14/23 04:34 AST 36 U/L (0-40) 01/14/23 04:34 ALT 51 U/L (0-41) H 01/14/23 04:34 Alkaline Phosphatase 125 U/L (40-130) 01/14/23 04:34 C-Reactive Protein 6.5 mg/L (0.0-4.9) H 01/06/23 19:34 Total Protein 5.9 g/dL (6.6-8.7) L 01/14/23 04:34 Albumin 2.6 g/dL (3.5-5.2) L 01/14/23 04:34 Globulin 3.3 g/dL (1.3-4.6) 01/14/23 04:34 Triglycerides 139 mg/dL (0-150) 01/14/23 04:34 Cholesterol 74 mg/dL (0-200) 01/14/23 04:34 LDL Cholesterol, Calc 30 mg/dL (50-129) L 01/14/23 04:34 Total VLDL Cholesterol 28 mg/dL (0-30) 01/14/23 04:34 HDL Cholesterol 16 mg/dL (60-100) L 01/14/23 04:34 Cholesterol/HDL Ratio 4.63 mg/dL (1.0-5.00) 01/14/23 04:34 Lipase 16 U/L (13-60) 01/06/23 19:34 Vitamin B12 699 pg/mL (232-1245) 01/13/23 05:03 Folate 6.9 ng/mL (4.5-32.2) 01/14/23 04:34 TSH 2.06 uIU/mL (0.27-4.20) 01/13/23 05:03 Urine Color Yellow (Yellow) 01/07/23 08:27 Urine Appearance Clear (CLEAR) 01/07/23 08:27 Urine pH 6.5 (5-7) 01/07/23 08:27 Ur Specific [place] 1.010 (1.005-1.030) 01/07/23 08:27 Urine Protein 1+ (Negative) H 01/07/23 08:27 Urine Glucose (UA) Norm (Normal) 01/07/23 08:27 Urine Ketones 2+ (Negative) H 01/07/23 08:27 Urine Blood Neg (Negative) 01/07/23 08:27 Urine Nitrate Negative (Negative) 01/07/23 08:27 Urine Bilirubin 1+ (Negative) H 01/07/23 08:27 Urine Urobilinogen Norm mg/dL (Negative) 01/07/23 08:27 Ur Leukocyte Esterase Negative (Negative) 01/07/23 08:27 Urine RBC 0-4 /hpf (0-2) H 01/07/23 08:27 Urine WBC 0-4 /hpf (0-5) H 01/07/23 08:27 Ur Squamous Epith Cells 0-4 /hpf (0-5) H 01/07/23 08:27 Amorphous Sediment Not Reportable 01/07/23 08:27 Urine Bacteria Trace /hpf (NONE) 01/07/23 08:27 Urine Mucus 1+ /hpf 01/07/23 08:27 Vancomycin Trough 8.6 ug/mL (10-15) L 01/14/23 17:38 Coronavirus 229E (PCR) Not detected (NOT DETECT) 01/13/23 03:39 SARS-CoV-2 (PCR) Not detected (NOT DETECT) 01/13/23 03:39 SARS-CoV-2 Ag (Rapid) negative (Negative) 01/13/23 16:00 Blood Type O Positive 01/14/23 16:45 Rho(D) Type Positive 01/14/23 16:45 Antibody Screen Negative 01/14/23 16:45 Radiology Impressions Abdomen/Pelvis CT 01/06/23 20:45 IMPRESSION: 1. Small-bowel obstruction due to a left periumbilical hernia containing an obstructed loop of small bowel. 2. Fluid distended stomach. Gastric tube placement should be considered. KUB X-Ray 01/09/23 12:52 IMPRESSION: The gastric tube tip overlies the gastric body level. Chest/Abdomen X-ray 01/10/23 17:01 IMPRESSION: 1. There is an enteric tube present with distal tip in the stomach. 2. Dilated small bowel loops seen in the upper abdomen. 3. Mild cardiomegaly is noted. 4. Low lung volumes bilaterally causing crowding of the lung markings. Mild compressive atelectasis at the lung bases. 5. Small bilateral pleural effusions. Chest X-Ray 01/14/23 19:34 IMPRESSION: Enteral tube is in satisfactory position. Recent Clincial Data Last Vital Signs Temp 98.3 F 08/26/23 01:36 Pulse 80 01/15/23 01:36 Resp 17 01/15/23 01:36 BP 132/83 01/14/23 22:30 Pulse Ox 95 01/15/23 01:36 O2 Del Method Nasal Cannula 01/14/23 11:25 O2 Flow Rate 1.5 01/14/23 11:25 Vital Signs Temp Pulse Resp BP Pulse Ox 01/15/23 01:36 98.3 F 80 17 95 01/14/23 22:30 84 24 H 132/83 97 01/14/23 22:00 84 19 H 90 01/14/23 21:30 82 23 H 96 01/14/23 21:00 89 20 H 144/100 98 Intake & Output/Weight 01/13/23 01/14/23 01/15/23 01/16/23 06:59 06:59 06:59 06:59 Intake Total 2812.5 / 2812.5 1820 / 1820 3010 / 3010 Output Total 1400 / 1400 Balance 2812.5 / 2812.5 420 / 420 3010 / 3010 Procedures Performed Laparoscopic repair of incarcerated ventral hernia, PICC line placement, NG tube placement Vitals Last Vital Signs Temp 98.3 F 01/15/23 01:36 Pulse 80 01/15/23 01:36 Resp 17 01/15/23 01:36 BP 132/83 01/14/23 22:30 Pulse Ox 95 01/15/23 01:36 O2 Del Method Nasal Cannula 01/14/23 11:25 O2 Flow Rate 1.5 01/14/23 11:25 TS Medications Medications Discontinued Medications Acetaminophen (Acetaminophen 325 Mg Tablet) 650 mg PO Q6H PRN PRN Reason: MILD PAIN Last Admin: 01/13/23 21:43 Dose: 650 mg Hydrocodone Bitart/Acetaminophen (Hydrocodone-Acetaminophen 7.5-325 Mg Tablet) 1 tab PO Q4H PRN PRN Reason: MODERATE PAIN Last Admin: 01/12/23 17:07 Dose: 1 tab Hydrocodone Bitart/Acetaminophen (Hydrocodone-Acetaminophen 7.5-325 Mg Tablet) 1 tab PO Q4H PRN PRN Reason: MODERATE PAIN Last Admin: 01/13/23 11:30 Dose: 1 tab Albuterol Sulfate (Albuterol 2.5 Mg/3 Ml Neb) 2.5 mg INHALATION ONCE PRN PRN Reason: WHEEZING Dexamethasone (Dexamethasone 4 Mg/Ml Inj) Confirm Administered Dose 8 mg .ROUTE .STK-MED ONE Stop: 01/07/23 13:47 Diphenhydramine HCl (Diphenhydramine 50 Mg/Ml Sdv 1ml) 12.5 mg IVP ONCE PRN PRN Reason: PONV Diphenhydramine HCl (Diphenhydramine 50 Mg/Ml Sdv 1ml) 12.5 mg IVP ONCE PRN PRN Reason: Postop N/V Diphenhydramine HCl (Diphenhydramine 25 Mg Capsule) 25 mg PO NOW ONE Stop: 01/13/23 19:39 Last Admin: 01/13/23 20:34 Dose: 25 mg Famotidine (Famotidine 20 Mg/2 Ml Inj) 20 mg IVP ONCE PRN PRN Reason: HEARTBURN Fentanyl (Fentanyl 50 Mcg/Ml Inj 2ml) 25 mcg IVP ONCE ONE Stop: 01/06/23 20:50 Last Admin: 01/06/23 21:43 Dose: 25 mcg Fentanyl (Fentanyl 50 Mcg/Ml Inj 2ml) Confirm Administered Dose 100 mcg .ROUTE .STK-MED ONE Stop: 01/07/23 13:47 Fentanyl (Fentanyl 50 Mcg/Ml Inj 2ml) 50 mcg IVP ONCE PRN PRN Reason: Preop Pain Glycopyrrolate (Glycopyrrolate 0.2 Mg/Ml Sdv 2 Ml) Confirm Administered Dose 0.4 mg .ROUTE .STK-MED ONE Stop: 01/07/23 13:47 Glycopyrrolate (Glycopyrrolate 0.2 Mg/Ml Sdv 2 Ml) Confirm Administered Dose 0.4 mg .ROUTE .STK-MED ONE Stop: 01/07/23 15:48 Hydromorphone HCl (Hydromorphone 1 Mg/Ml Inj 1 Ml) 1 mg IVP Q3H PRN PRN Reason: PAIN Last Admin: 01/10/23 23:20 Dose: 1 mg Hydromorphone HCl (Hydromorphone 1 Mg/Ml Inj 1 Ml) 0.5 mg IVP ONCE PRN PRN Reason: Phase II postop pain Hydromorphone HCl (Hydromorphone 1 Mg/Ml Inj 1 Ml) 0.5 mg IVP ONCE PRN PRN Reason: For preop pain/anxiety Hydromorphone HCl (Hydromorphone 1 Mg/Ml Inj 1 Ml) Confirm Administered Dose 1 mg .ROUTE .K-MED ONE Stop: 01/07/23 15:23 Hydromorphone HCl (Hydromorphone 1 Mg/Ml Inj 1 Ml) 1 mg IVP Q3H PRN PRN Reason: BREAKTHROUGH PAIN Last Admin: 01/15/23 00:33 Dose: 1 mg Sodium Chloride (Sodium Chloride 0.9%) 1,000 mls @ 999 mls/hr IV .Q1H1M ONE Stop: 01/06/23 21:49 Last Infusion: 01/06/23 23:35 Dose: Infused Sodium Chloride (Sodium Chloride 0.9%) 1,000 mls @ 999 mls/hr IV .Q1H1M ONE Stop: 01/07/23 00:14 Last Infusion: 01/07/23 00:46 Dose: Infused Sodium Chloride (Sodium Chloride 0.9%) 1,000 mls @ 100 mls/hr IV .Q10H ON LICENSE OF [facility] Last Infusion: 01/07/23 01:59 Dose: 150 mls/hr Sodium Chloride (Sodium Chloride 0.9%) 1,000 mls @ 150 mls/hr IV .Q6H40M ON LICENSE OF [facility] Last Admin: 01/12/23 12:30 Dose: 150 mls/hr Piperacillin Sod/Tazobactam (Sod 3.375 gm/ Sodium Chloride) 50 mls @ 12.5 mls/hr IV Q8H ON LICENSE OF [facility]; Protocol Last Infusion: 01/13/23 19:00 Dose: Infused Acetaminophen (Acetaminophen) Confirm Administered Dose 1,000 mg in 100 mls @ as directed .ROUTE .ST-MED ONE Stop: 01/07/23 13:51 Sodium Chloride (Sodium Chloride 0.9%) 1,000 mls @ 30 mls/hr IV .Q24H ON LICENSE OF [facility] Stop: 01/08/23 14:14 Last Infusion: 01/08/23 18:24 Dose: Infused Potassium Chloride (K-Donovan) 100 mls @ 25 mls/hr IV Q4H ON LICENSE OF [facility] Stop: 01/11/23 15:59 Lidocaine HCl 5 ml/ Potassium (Chloride) 105 mls @ 26.25 mls/hr IV Q4H ON LICENSE OF [facility] Stop: 01/11/23 15:59 Last Infusion: 08/22/23 18:55 Dose: Infused Sodium Chloride (Sodium Chloride 0.9%) 1,000 mls @ 75 mls/hr IV .Q03K29O ON LICENSE OF [facility] Last Infusion: 01/14/23 19:48 Dose: Infused Meropenem 1,000 mg/ Sodium (Chloride) 50 mls @ 100 mls/hr IV Q8H LEN; Protocol Last Infusion: 01/14/23 20:50 Dose: Infused Vancomycin HCl / Sodium (Chloride) 250 mls @ 0 mls/hr [id number] PROTOCOL LEN; Protocol Vancomycin/PEG/NADA/Lysine/Water (Vancocin) 1,250 mg in 250 mls @ 200 mls/hr IV Q8H ON LICENSE OF [facility] Last Infusion: 01/14/23 20:50 Dose: Infused Fluconazole 100 mg/ N/A 50 mls @ 50 mls/hr IV Q24H ON LICENSE OF [facility] Last Infusion: 01/14/23 21:30 Dose: Infused Lactated Ringer's (Lactated Ringers) 1,000 mls @ 999 mls/hr IV .Q1H1M ONE Stop: 01/14/23 19:42 Last Infusion: 01/14/23 20:51 Dose: Infused Lactated Ringer's (Lactated Ringers) 1,000 mls @ 100 mls/hr IV .Q10H ON LICENSE OF [facility] Last Admin: 01/14/23 20:50 Dose: 100 mls/hr Vancomycin/PEG/NADA/Lysine/Water (Vancocin) 1,500 mg in 300 mls @ 200 mls/hr IV Q8H ON LICENSE OF [facility] Iohexol (Iohexol 350 Mg/Ml 500 Ml Btl (Per Ml)) 0 ml IV ONCE ONE Stop: 01/06/23 22:17 Last Admin: 01/06/23 22:17 Dose: 100 ml Iohexol (Iohexol 350 Mg/Ml 500 Ml Btl (Per Ml)) 0 ml PO ONCE ONE Stop: 01/13/23 08:25 Last Admin: 01/13/23 08:24 Dose: 50 ml Iohexol (Iohexol 350 Mg/Ml 500 Ml Btl (Per Ml)) 0 ml IV ONCE ONE Stop: 01/13/23 09:33 Last Admin: 01/13/23 09:33 Dose: 100 ml Ipratropium [place] (Ipratropium 0.5 Mg/2.5 Ml Neb) 0.5 mg INHALATION ONCE PRN PRN Reason: WHEEZING Ketamine HCl (Ketamine 50 Mg/Ml Inj 10 Ml) Confirm Administered Dose 500 mg .ROUTE .STK-MED ONE Stop: 01/07/23 14:58 Lidocaine HCl (Lidocaine 1% Inj 10 Ml (Per Ml)) Confirm Administered Dose 5 ml .ROUTE .STK-MED ONE Stop: 01/07/23 13:47 Lidocaine/Epinephrine (Lidocaine-Epi 2% 20 Ml Inj) Confirm Administered Dose 20 ml .ROUTE .STK-MED ONE Stop: 01/07/23 14:08 Lidocaine/Epinephrine (Lidocaine-Epi 2% 20 Ml Inj) 20 ml INJECTION ONCE ONE Stop: 01/07/23 14:29 Last Admin: 01/07/23 14:41 Dose: 20 ml Lorazepam (Lorazepam 0.5 Mg Tablet) 0.5 mg PO TID PRN PRN Reason: ANXIETY Midazolam HCl (Midazolam 1 Mg/Ml Inj 2 Ml) Confirm Administered Dose 2 mg .ROUTE .STK-MED ONE Stop: 01/07/23 13:47 Midazolam HCl (Midazolam 1 Mg/Ml Inj 2 Ml) 2 mg IVP ONCE PRN PRN Reason: Preop Anxiety Morphine Sulfate (Morphine 4 Mg/Ml Sdv 1 Ml) 4 mg IVP ONCE ONE Stop: 01/06/23 23:15 Last Admin: 01/06/23 23:35 Dose: 4 mg Morphine Sulfate (Morphine 4 Mg/Ml Sdv 1 Ml) 4 mg IVP Q4H PRN PRN Reason: SEVERE PAIN Last Admin: 01/08/23 09:36 Dose: 4 mg Neostigmine Methylsulfate (Neostigmine 1 Mg/Ml Sdv 10 Ml) Confirm Administered Dose 10 mg .ROUTE .STK-MED ONE Stop: 01/07/23 13:47 Nystatin (Nystatin Powder 15 Gm Btl) 1 applic TOPICAL BID LEN Last Admin: 01/14/23 19:20 Dose: Not Given Nystatin (Nystatin Cream 30 Gm) 1 applic TOPICAL BID PRN PRN Reason: ITCHING Last Admin: 01/11/23 21:00 Dose: 1 applic Ondansetron HCl (Ondansetron 2 Mg/Ml Sdv 2 Ml) 4 mg IVP Q6H PRN PRN Reason: NAUSEA AND VOMITING Last Admin: 01/15/23 00:32 Dose: 4 mg Ondansetron HCl (Ondansetron 2 Mg/Ml Sdv 2 Ml) Confirm Administered Dose 4 mg .ROUTE .STK-MED ONE Stop: 01/07/23 13:47 Ondansetron HCl (Ondansetron 2 Mg/Ml Sdv 2 Ml) 4 mg IVP ONCE PRN PRN Reason: NAUSEA AND VOMITING Paliperidone (Paliperidone Er 6 Mg Tablet) 12 mg PO DAILY ON LICENSE OF [facility] Last Admin: 01/14/23 10:04 Dose: 12 mg Pantoprazole Sodium (Pantoprazole 40 Mg Sdv) 40 mg IVP DAILY ON LICENSE OF [facility] Last Admin: 01/14/23 18:44 Dose: 40 mg Potassium Chloride (Potassium Chloride Er 20 Meq Tablet) 40 meq PO ONCE ONE Stop: 01/11/23 18:01 Last Admin: 01/11/23 18:57 Dose: 40 meq Potassium Chloride (Potassium Chloride Er 20 Meq Tablet) 40 meq PO Q6H ON LICENSE OF [facility] Stop: 01/12/23 17:31 Last Admin: 01/12/23 17:07 Dose: 40 meq Prednisone (Prednisone 20 Mg Tablet) 20 mg PO ONCE ONE Stop: 01/13/23 19:38 Last Admin: 01/13/23 20:34 Dose: 20 mg Propofol (Propofol 10 Mg/Ml Sdv 20 Ml) Confirm Administered Dose 200 mg .ROUTE .STK-MED ONE Stop: 01/07/23 13:47 Propofol (Propofol 10 Mg/Ml Sdv 20 Ml) Confirm Administered Dose 200 mg .ROUTE .STK-MED ONE Stop: 01/07/23 15:31 Rocuronium [place] (Rocuronium 10 Mg/Ml Inj 5ml) Confirm Administered Dose 50 mg .ROUTE .STK-MED ONE Stop: 01/07/23 13:47 Scopolamine (Scopolamine 1.5 Patch) 1 patch TRANSDERMA ONCE PRN PRN Reason: Nausea/ Vomiting Prophylaxis Sugammadex Sodium (Sugammadex 200 Mg/2 Ml Sdv) Confirm Administered Dose 200 mg .ROUTE .STK-MED ONE Stop: 01/07/23 14:23 Allergies No Known Allergies Allergy (Verified 01/06/23 18:25) Home Medications hydroxyzine HCl 25 mg tablet 25 mg PO TID PRN anxiety #90 tabs 06/03/20 [Rx Confirmed 01/07/23] trazodone 50 mg tablet 50 mg PO .QHS #30 tabs 05/03/22 [Rx Confirmed 01/07/23] paliperidone 6 mg tablet,extended release 24 hr (Invega) 12 mg PO QAM #60 tabs 01/03/23 [Rx Confirmed 01/07/23] amoxicillin 875 mg-potassium clavulanate 125 mg tablet 1 tab PO BID #14 tabs 01/13/23 [Rx] docusate sodium 100 mg capsule (Colace) 100 mg PO BID #14 caps 01/13/23 [Rx] hydrocodone 10 mg-acetaminophen 325 mg tablet 1 tab PO Q6H PRN pain #20 tabs 01/13/23 [Rx] Discharge Plan Discharge Patient Disposition: Xfer Short-Term Hosp Condition: Stable Prescriptions: New amoxicillin-pot clavulanate 875-125 mg tablet 1 tab PO BID Qty: 14 0RF hydrocodone-acetaminophen 10-325 mg tablet 1 tab PO Q6H PRN (Reason: pain) Qty: 20 0RF Rx Instructions: May take half of a tab at a time Colace 100 mg capsule 100 mg PO BID Qty: 14 0RF Continued hydroxyzine HCl 25 mg tablet 25 mg PO TID PRN (Reason: anxiety) Qty: 90 0RF trazodone 50 mg tablet 50 mg PO .QHS Qty: 30 5RF paliperidone [Invega] 6 mg tablet extended release 24 hr 12 mg PO QAM Qty: 60 2RF Discharge Orders: Discharge Order (Routine); Ordered 01/14/23 Ordered By: Stoney Garcia Referrals: [facility] [Other] - 4-7 days (You have been set up with an appointment with ZEFERINO Turner on 01/14/23 at 2 PM. Please call and give them your insurance information before your appointment. ) Discharge Activity: Limit activity as instructed Activity Restrictions/Additional Instructions: No lifting, pushing or pulling over 15 pounds for 6 weeks. Do not soak incisions underwater for 2 weeks. Shower daily. Let the glue fall off on its own. Plan of Treatment: Transfer to higher level of care for surgical management Transfer Attestations Time Spent in Transfer Care: greater than 30 min Quality Metrics Clinical Quality Measures [ No reported AMI, CVA or VTE this stay] Coding Level of Care Code Acute Code for Chg Fwd Diagnoses Pneumomediastinum J98.2 Subcutaneous emphysema T79.7XXA Incarcerated umbilical hernia K42.0 Leukocytosis D72.829 Maculopapular rash R21 Enterocutaneous fistula K63.2
--- NOTE | 2023-01-15 08:52 | PM.TDS ---
Transfer Summary Providers Date of Admission: 01/06/23 23:36 Date of Discharge/Transfer: 01/15/23 Attending Provider at Admission: Sunil Camilo DO Attending Provider at Transfer: Sunil Camilo DO Transfer Plans: Anticipated date of transfer: 01/15/23. Diagnoses at Discharge Discharge Diagnosis (1) Pneumomediastinum: Status: Acute (2) Subcutaneous emphysema: Status: Acute (3) Incarcerated umbilical hernia: Status: Acute (4) Leukocytosis: Status: Acute (5) Maculopapular rash: Status: Acute (6) Enterocutaneous fistula: Status: Acute Reason for Visit Reason for Visit abdomin pain, vomitting Hospital Course Hospital Course AThis is a 42 y/o M with history of previous laparotomy and ventral hernia who presented to the hospital with incarcerated ventral incisional hernia. Patient was taken to the OR by Dr. Camilo for a laparoscopic ventral hernia repair with mesh which was done without noted immediate complications. patient had a slow postoperative course with noted ileus, by POD3 he was tolerating liquids and having bowel function. On postoperative day 5 he was noted to have an increase in the white count to 13, it trended up to 18 of the following day at this point a CT of the chest abdomen and pelvis with IV contrast was obtained, CT scan showed evidence of extensive pneumomediastinum, subcutaneous emphysema and complex fluid collection at the level of the previous hernia cell in the anterior abdominal wall. At the time pulmonology and internal medicine was consulted, per pulmonology evaluation to consider that pneumomediastinum and subcutaneous emphysema may be due to barotrauma closed during the operation either during intubation or subsequent NG tube insertion. In addition they identified a possible pneumonia and atelectasis, recommended starting the IV antibiotics. Is at this point that I was made aware of the patient, after my initial evaluation I considered that patient will be better served in a higher level of care, I transfer the patient to the critical care unit for close monitoring, with an escalated antibiotic coverage and continue conservative management. In the afternoon of postoperative day 7 patient was noted to have 1 episode of emesis and the anterior abdominal wall was noted to be draining feculent material. At this point I reevaluated the patient, clinically he remained stable, abdomen was moderately distended, there is drainage happening from the anterior abdominal wall corresponding to the area in the CT scan were a previous air-fluid level collection was noted. The clinical picture is likely consistent with an early enterocutaneous fistula formation. I informed of the findings to Dr. Camilo and subsequently I talked to the family members explained the gravity of the situation, I have also explained that the patient will likely require extensive surgery, with high risk for morbidity, mortality and probable need for open abdomen and prolonged ICU stay with need for ventilatory management. I explained that is in the patient best interest to be transferred to higher level of care facility with surgical critical care yarn dyer, colorectal team and IR availability to maximize the possibility of the having a good outcome. A PICC line was placed for the patient to have a secure central access in case of need of large volume resuscitation, patient made n.p.o. and ostomy bag placed over the draining fistula tract. The transfer process was initiated, I discussed the case with Dr. Smallwood at [facility] in [place], Dr. Smallwood accepted the transfer and agree with the need for transfer to higher level of care, additionally he had requested for NG tube placement. I Placed NG as requested by the accepting physician, initial output was about 300 cc of intestinal content. At the time of transfer patient was clinically stable, without evidence of hemodinamic deterioration, no contraindication for transfer from the surgical standpoint. Family was informed of succesful transfer placement Physical Exam Urinary Catheter Management: Cardona: Cath Placed During This Visit: yes Reason for Continuing Indwelling Catheter: Accurate Measurement of Urinary Output in Critically Ill Patients Urinary Catheter Date of Insertion: 01/13/23 Urinary Catheter Time of Insertion: 21:16 TS Data Studies Completed and Pending Pending at discharge Category Date Time Status IR fistula/abscess/sinus [id number] Routine Exams 01/14/23 19:49 Ordered Blood Culture Stat Lab 01/13/23 19:06 Results Labs from last 24 hours 01/14/23 01/14/23 17:38 16:45 Vancomycin Trough 8.6 L Blood Type O Positive Rho(D) Type Positive Antibody Screen Negative Completed Studies During Hospitalization Category Date Time Status CT abdomen pelvis w con* [id number] Stat Cat Scan 01/06/23 20:[address] chest abdpel w/*[id number] Stat Cat Scan 01/13/23 08:03 Completed CXRP [XR chest 1V portable [id number]] Routine Exams 01/14/23 17:59 Completed XR KUB [id number] Routine Exams 01/09/23 12:52 Completed XR KUB [id number] Stat Exams 01/06/23 18:58 Completed XR acute abdomen series 30049 Routine Exams 01/10/23 17:01 Completed XR chest 1V 23317 Stat Exams 01/06/23 23:51 Completed XR chest 1V [id number] Stat Exams 01/14/23 19:34 Completed Pathology: Surgical [PTH] Routine Pth 01/07/23 16:03 Completed Laboratory Last Values WBC 19.15 10^3/uL (3.29-11.43) H 01/14/23 04:34 RBC 4.29 10^6/uL (3.85-5.65) 01/14/23 04:34 Hgb 12.80 g/dL (11.27-16.99) 01/14/23 04:34 Hct 38.7 % (37-53) 01/14/23 04:34 MCV 90.2 fl (82-101) 01/14/23 04:34 MCH 29.8 pg (27-33) 01/14/23 04:34 MCHC 33.1 g/dL (30-55) 01/14/23 04:34 RDW 15.1 % (12.1-15.1) 01/14/23 04:34 Plt Count 351 10^3/cmm (157-399) 01/14/23 04:34 MPV 9.5 fL (7.4-10.4) 01/14/23 04:34 Neut % (Auto) 87.2 % 01/14/23 04:34 Lymph % (Auto) 5.7 % 01/14/23 04:34 [place] % (Auto) 4.8 % 01/14/23 04:34 Eos % (Auto) 0.8 % 01/14/23 04:34 Baso % (Auto) 0.6 % 01/14/23 04:34 Neut # (Auto) 16.68 10^3/uL (1.8-7.7) H 01/14/23 04:34 Lymph # (Auto) 1.1 10^3/uL (0.8-4.8) 01/14/23 04:34 [place] # (Auto) 0.9 10^3/uL (0.2-0.9) 01/14/23 04:34 Eos # (Auto) 0.2 10^3/uL (0.0-0.8) 01/14/23 04:34 Baso # (Auto) 0.1 10^3/uL (0.0-0.1) 01/14/23 04:34 Nucleated RBC % (auto) 0 % 01/14/23 04:34 Total Counted 100 (0-100) 01/13/23 19:45 Atypical Lymphs % 0.0 % (0-5) 01/13/23 19:45 Absolute Neutrophils 17.2 10^3/cmm (1.4-6.5) H 01/13/23 19:45 Segmented Neutrophils 87 % 01/13/23 19:45 Abs Segm Neuts (Man) 15.9 10/cmm (1.6-7.1) H 01/13/23 19:45 Band Neutrophils 7.0 % 01/13/23 19:45 Abs Band Neuts (Man) 1.3 10^3/cmm (0.0-1.2) H 01/13/23 19:45 Absolute Lymphocytes 0.0 10^3/cmm (1.2-3.4) L 01/13/23 19:45 Lymphocytes (Manual) 0 % 01/13/23 19:45 Monocytes (Manual) 4.0 % 01/13/23 19:45 Absolute Monocytes 0.7 10^3/cmm (0.1-0.6) H 01/13/23 19:45 Eosinophils (Manual) 2 % 01/13/23 19:45 Absolute Eosinophils 0.4 10^3/cmm (0.0-0.7) 01/13/23 19:45 Basophils (Manual) 0.0 % 01/13/23 19:45 Absolute Basophils 0.0 10^3/cmm (0.0-0.2) 01/13/23 19:45 Metamyelocytes 0.0 % 01/13/23 19:45 Myelocytes 0.0 % 01/13/23 19:45 Promyelocytes 0.0 % 01/13/23 19:45 Nucleated RBCs # 0.0 /100WBC 01/14/23 04:34 Toxic Granulation 2+ H 01/13/23 19:45 Platelet Estimate Normal (Normal) 01/13/23 19:45 ESR 4 mm/hr (0-10) 01/06/23 19:34 Sodium 139 mmol/L (136-145) 01/14/23 04:34 Potassium 3.5 mmol/L (3.5-5.1) 01/14/23 04:34 Chloride 103 mmol/L (98-107) 01/14/23 04:34 Carbon Dioxide 22 mmol/L (22-29) 01/14/23 04:34 Anion Gap 17.5 (5-19) 01/14/23 04:34 BUN 9 mg/dL (6-20) 01/14/23 04:34 Creatinine 0.6 mg/dL (0.7-1.2) L 01/14/23 04:34 GFR Calculation 149.2 mL/min (90-130) H 01/14/23 04:34 Glucose 118 mg/dL (65-115) H 01/14/23 04:34 Estimat Average Glucose 128 01/14/23 04:34 Hemoglobin A1c 6.1 % (4.0-6.0) H 01/14/23 04:34 Calculated Osmolality 288 mOsm/kg (285-295) 01/14/23 04:34 Lactic Acid 1.1 mmol/L (0.5-2.2) 01/13/23 19:45 Calcium 8.1 mg/dL (8.5-10.5) L 01/14/23 04:34 Phosphorus 2.4 mg/dL (2.5-4.5) L 01/13/23 19:45 Magnesium 1.9 mg/dL (1.7-2.3) 01/14/23 04:34 Iron 17 ug/dL (59-158) L 01/13/23 05:03 TIBC 139 mcg/dl 01/13/23 05:03 % Saturation 12.2 % (20-50) L 01/13/23 05:03 Unsat Iron Binding 122 ug/dL (112-347) 01/13/23 05:03 Total Bilirubin 0.6 mg/dL (0.15-1.2) 01/14/23 04:34 AST 36 U/L (0-40) 01/14/23 04:34 ALT 51 U/L (0-41) H 01/14/23 04:34 Alkaline Phosphatase 125 U/L (40-130) 01/14/23 04:34 C-Reactive Protein 6.5 mg/L (0.0-4.9) H 01/06/23 19:34 Total Protein 5.9 g/dL (6.6-8.7) L 01/14/23 04:34 Albumin 2.6 g/dL (3.5-5.2) L 01/14/23 04:34 Globulin 3.3 g/dL (1.3-4.6) 01/14/23 04:34 Triglycerides 139 mg/dL (0-150) 01/14/23 04:34 Cholesterol 74 mg/dL (0-200) 01/14/23 04:34 LDL Cholesterol, Calc 30 mg/dL (50-129) L 01/14/23 04:34 Total VLDL Cholesterol 28 mg/dL (0-30) 01/14/23 04:34 HDL Cholesterol 16 mg/dL (60-100) L 01/14/23 04:34 Cholesterol/HDL Ratio 4.63 mg/dL (1.0-5.00) 01/14/23 04:34 Lipase 16 U/L (13-60) 01/06/23 19:34 Vitamin B12 699 pg/mL (232-1245) 01/13/23 05:03 Folate 6.9 ng/mL (4.5-32.2) 01/14/23 04:34 TSH 2.06 uIU/mL (0.27-4.20) 01/13/23 05:03 Urine Color Yellow (Yellow) 01/07/23 08:27 Urine Appearance Clear (CLEAR) 01/07/23 08:27 Urine pH 6.5 (5-7) 01/07/23 08:27 Ur Specific [place] 1.010 (1.005-1.030) 01/07/23 08:27 Urine Protein 1+ (Negative) H 01/07/23 08:27 Urine Glucose (UA) Norm (Normal) 01/07/23 08:27 Urine Ketones 2+ (Negative) H 01/07/23 08:27 Urine Blood Neg (Negative) 01/07/23 08:27 Urine Nitrate Negative (Negative) 01/07/23 08:27 Urine Bilirubin 1+ (Negative) H 01/07/23 08:27 Urine Urobilinogen Norm mg/dL (Negative) 01/07/23 08:27 Ur Leukocyte Esterase Negative (Negative) 01/07/23 08:27 Urine RBC 0-4 /hpf (0-2) H 01/07/23 08:27 Urine WBC 0-4 /hpf (0-5) H 01/07/23 08:27 Ur Squamous Epith Cells 0-4 /hpf (0-5) H 01/07/23 08:27 Amorphous Sediment Not Reportable 01/07/23 08:27 Urine Bacteria Trace /hpf (NONE) 01/07/23 08:27 Urine Mucus 1+ /hpf 01/07/23 08:27 Vancomycin Trough 8.6 ug/mL (10-15) L 01/14/23 17:38 Coronavirus 229E (PCR) Not detected (NOT DETECT) 01/13/23 03:39 SARS-CoV-2 (PCR) Not detected (NOT DETECT) 01/13/23 03:39 SARS-CoV-2 Ag (Rapid) negative (Negative) 01/13/23 16:00 Blood Type O Positive 01/14/23 16:45 Rho(D) Type Positive 01/14/23 16:45 Antibody Screen Negative 01/14/23 16:45 Radiology Impressions Abdomen/Pelvis CT 01/06/23 20:45 IMPRESSION: 1. Small-bowel obstruction due to a left periumbilical hernia containing an obstructed loop of small bowel. 2. Fluid distended stomach. Gastric tube placement should be considered. KUB X-Ray 01/09/23 12:52 IMPRESSION: The gastric tube tip overlies the gastric body level. Chest/Abdomen X-ray 01/10/23 17:01 IMPRESSION: 1. There is an enteric tube present with distal tip in the stomach. 2. Dilated small bowel loops seen in the upper abdomen. 3. Mild cardiomegaly is noted. 4. Low lung volumes bilaterally causing crowding of the lung markings. Mild compressive atelectasis at the lung bases. 5. Small bilateral pleural effusions. Chest X-Ray 01/14/23 19:34 IMPRESSION: Enteral tube is in satisfactory position. Recent Clincial Data Last Vital Signs Temp 98.3 F 01/15/23 01:36 Pulse 80 01/15/23 01:36 Resp 17 01/15/23 01:36 BP 132/83 01/14/23 22:30 Pulse Ox 95 01/15/23 01:36 O2 Del Method Nasal Cannula 01/14/23 11:25 O2 Flow Rate 1.5 01/14/23 11:25 Vital Signs Temp Pulse Resp BP Pulse Ox 01/15/23 01:36 98.3 F 80 17 95 01/14/23 22:30 84 24 H 132/83 97 01/14/23 22:00 84 19 H 90 01/14/23 21:30 82 23 H 96 01/14/23 21:00 89 20 H 144/100 98 Intake & Output/Weight 01/13/23 01/14/23 01/15/23 01/16/23 06:59 06:59 06:59 06:59 Intake Total 2812.5 / 2812.5 1820 / 1820 3010 / 3010 Output Total 1400 / 1400 Balance 2812.5 / 2812.5 420 / 420 3010 / 3010 Vitals Last Vital Signs Temp 98.3 F 01/15/23 01:36 Pulse 80 01/15/23 01:36 Resp 17 01/15/23 01:36 BP 132/83 01/14/23 22:30 Pulse Ox 95 01/15/23 01:36 O2 Del Method Nasal Cannula 01/14/23 11:25 O2 Flow Rate 1.5 01/14/23 11:25 TS Medications Medications Discontinued Medications Acetaminophen (Acetaminophen 325 Mg Tablet) 650 mg PO Q6H PRN PRN Reason: MILD PAIN Last Admin: 01/13/23 21:43 Dose: 650 mg Hydrocodone Bitart/Acetaminophen (Hydrocodone-Acetaminophen 7.5-325 Mg Tablet) 1 tab PO Q4H PRN PRN Reason: MODERATE PAIN Last Admin: 01/12/23 17:07 Dose: 1 tab Hydrocodone Bitart/Acetaminophen (Hydrocodone-Acetaminophen 7.5-325 Mg Tablet) 1 tab PO Q4H PRN PRN Reason: MODERATE PAIN Last Admin: 01/13/23 11:30 Dose: 1 tab Albuterol Sulfate (Albuterol 2.5 Mg/3 Ml Neb) 2.5 mg INHALATION ONCE PRN PRN Reason: WHEEZING Dexamethasone (Dexamethasone 4 Mg/Ml Inj) Confirm Administered Dose 8 mg .ROUTE .STK-MED ONE Stop: 01/07/23 13:47 Diphenhydramine HCl (Diphenhydramine 50 Mg/Ml Sdv 1ml) 12.5 mg IVP ONCE PRN PRN Reason: PONV Diphenhydramine HCl (Diphenhydramine 50 Mg/Ml Sdv 1ml) 12.5 mg IVP ONCE PRN PRN Reason: Postop N/V Diphenhydramine HCl (Diphenhydramine 25 Mg Capsule) 25 mg PO NOW ONE Stop: 01/13/23 19:39 Last Admin: 01/13/23 20:34 Dose: 25 mg Famotidine (Famotidine 20 Mg/2 Ml Inj) 20 mg IVP ONCE PRN PRN Reason: HEARTBURN Fentanyl (Fentanyl 50 Mcg/Ml Inj 2ml) 25 mcg IVP ONCE ONE Stop: 01/06/23 20:50 Last Admin: 01/06/23 21:43 Dose: 25 mcg Fentanyl (Fentanyl 50 Mcg/Ml Inj 2ml) Confirm Administered Dose 100 mcg .ROUTE .STK-MED ONE Stop: 01/07/23 13:47 Fentanyl (Fentanyl 50 Mcg/Ml Inj 2ml) 50 mcg IVP ONCE PRN PRN Reason: Preop Pain Glycopyrrolate (Glycopyrrolate 0.2 Mg/Ml Sdv 2 Ml) Confirm Administered Dose 0.4 mg .ROUTE .STK-MED ONE Stop: 01/07/23 13:47 Glycopyrrolate (Glycopyrrolate 0.2 Mg/Ml Sdv 2 Ml) Confirm Administered Dose 0.4 mg .ROUTE .STK-MED ONE Stop: 01/07/23 15:48 Hydromorphone HCl (Hydromorphone 1 Mg/Ml Inj 1 Ml) 1 mg IVP Q3H PRN PRN Reason: PAIN Last Admin: 01/10/23 23:20 Dose: 1 mg Hydromorphone HCl (Hydromorphone 1 Mg/Ml Inj 1 Ml) 0.5 mg IVP ONCE PRN PRN Reason: Phase II postop pain Hydromorphone HCl (Hydromorphone 1 Mg/Ml Inj 1 Ml) 0.5 mg IVP ONCE PRN PRN Reason: For preop pain/anxiety Hydromorphone HCl (Hydromorphone 1 Mg/Ml Inj 1 Ml) Confirm Administered Dose 1 mg .ROUTE .STK-MED ONE Stop: 01/07/23 15:23 Hydromorphone HCl (Hydromorphone 1 Mg/Ml Inj 1 Ml) 1 mg IVP Q3H PRN PRN Reason: BREAKTHROUGH PAIN Last Admin: 01/15/23 00:33 Dose: 1 mg Sodium Chloride (Sodium Chloride 0.9%) 1,000 mls @ 999 mls/hr IV .Q1H1M ONE Stop: 01/06/23 21:49 Last Infusion: 01/06/23 23:35 Dose: Infused Sodium Chloride (Sodium Chloride 0.9%) 1,000 mls @ 999 mls/hr IV .Q1H1M ONE Stop: 01/07/23 00:14 Last Infusion: 01/07/23 00:46 Dose: Infused Sodium Chloride (Sodium Chloride 0.9%) 1,000 mls @ 100 mls/hr IV .Q10H [facility] Last Infusion: 01/07/23 01:59 Dose: 150 mls/hr Sodium Chloride (Sodium Chloride 0.9%) 1,000 mls @ 150 mls/hr IV .Q6H40M [facility] Last Admin: 01/12/23 12:30 Dose: 150 mls/hr Piperacillin Sod/Tazobactam (Sod 3.375 gm/ Sodium Chloride) 50 mls @ 12.5 mls/hr IV Q8H [facility]; Protocol Last Infusion: 01/13/23 19:00 Dose: Infused Acetaminophen (Acetaminophen) Confirm Administered Dose 1,000 mg in 100 mls @ as directed .ROUTE .STK-MED ONE Stop: 01/07/23 13:51 Sodium Chloride (Sodium Chloride 0.9%) 1,000 mls @ 30 mls/hr IV .Q24H [facility] Stop: 01/08/23 14:14 Last Infusion: 01/08/23 18:24 Dose: Infused Potassium Chloride (K-Donovan) 100 mls @ 25 mls/hr IV Q4H [facility] Stop: 01/11/23 15:59 Lidocaine HCl 5 ml/ Potassium (Chloride) 105 mls @ 26.25 mls/hr IV Q4H [facility] Stop: 01/11/23 15:59 Last Infusion: 01/11/23 18:55 Dose: Infused Sodium Chloride (Sodium Chloride 0.9%) 1,000 mls @ 75 mls/hr IV .[id number] [facility] Last Infusion: 01/14/23 19:48 Dose: Infused Meropenem 1,000 mg/ Sodium (Chloride) 50 mls @ 100 mls/hr IV Q8H [facility]; Protocol Last Infusion: 01/14/23 20:50 Dose: Infused Vancomycin HCl / Sodium (Chloride) 250 mls @ 0 mls/hr [id number] PROTOCOL [facility]; Protocol Vancomycin/PEG/NADA/Lysine/Water (Vancocin) 1,250 mg in 250 mls @ 200 mls/hr IV Q8H [facility] Last Infusion: 01/14/23 20:50 Dose: Infused Fluconazole 100 mg/ N/A 50 mls @ 50 mls/hr IV Q24H [facility] Last Infusion: 01/14/23 21:30 Dose: Infused Lactated Ringer's (Lactated Ringers) 1,000 mls @ 999 mls/hr IV .Q1H1M ONE Stop: 01/14/23 19:42 Last Infusion: 01/14/23 20:51 Dose: Infused Lactated Ringer's (Lactated Ringers) 1,000 mls @ 100 mls/hr IV .Q10H [facility] Last Admin: 01/14/23 20:50 Dose: 100 mls/hr Vancomycin/PEG/[place]/Lysine/Water (Vancocin) 1,500 mg in 300 mls @ 200 mls/hr IV Q8H [facility] Iohexol (Iohexol 350 Mg/Ml 500 Ml Btl (Per Ml)) 0 ml IV ONCE ONE Stop: 01/06/23 22:17 Last Admin: 01/06/23 22:17 Dose: 100 ml Iohexol (Iohexol 350 Mg/Ml 500 Ml Btl (Per Ml)) 0 ml PO ONCE ONE Stop: 01/13/23 08:25 Last Admin: 01/13/23 08:24 Dose: 50 ml Iohexol (Iohexol 350 Mg/Ml 500 Ml Btl (Per Ml)) 0 ml IV ONCE ONE Stop: 01/13/23 09:33 Last Admin: 01/13/23 09:33 Dose: 100 ml Ipratropium [place] (Ipratropium 0.5 Mg/2.5 Ml Neb) 0.5 mg INHALATION ONCE PRN PRN Reason: WHEEZING Ketamine HCl (Ketamine 50 Mg/Ml Inj 10 Ml) Confirm Administered Dose 500 mg .ROUTE .STK-MED ONE Stop: 01/07/23 14:58 Lidocaine HCl (Lidocaine 1% Inj 10 Ml (Per Ml)) Confirm Administered Dose 5 ml .ROUTE .STK-MED ONE Stop: 01/07/23 13:47 Lidocaine/Epinephrine (Lidocaine-Epi 2% 20 Ml Inj) Confirm Administered Dose 20 ml .ROUTE .STK-MED ONE Stop: 01/07/23 14:08 Lidocaine/Epinephrine (Lidocaine-Epi 2% 20 Ml Inj) 20 ml INJECTION ONCE ONE Stop: 01/07/23 14:29 Last Admin: 01/07/23 14:41 Dose: 20 ml Lorazepam (Lorazepam 0.5 Mg Tablet) 0.5 mg PO TID PRN PRN Reason: ANXIETY Midazolam HCl (Midazolam 1 Mg/Ml Inj 2 Ml) Confirm Administered Dose 2 mg .ROUTE .STK-MED ONE Stop: 01/07/23 13:47 Midazolam HCl (Midazolam 1 Mg/Ml Inj 2 Ml) 2 mg IVP ONCE PRN PRN Reason: Preop Anxiety Morphine Sulfate (Morphine 4 Mg/Ml Sdv 1 Ml) 4 mg IVP ONCE ONE Stop: 01/06/23 23:15 Last Admin: 01/06/23 23:35 Dose: 4 mg Morphine Sulfate (Morphine 4 Mg/Ml Sdv 1 Ml) 4 mg IVP Q4H PRN PRN Reason: SEVERE PAIN Last Admin: 01/08/23 09:36 Dose: 4 mg Neostigmine Methylsulfate (Neostigmine 1 Mg/Ml Sdv 10 Ml) Confirm Administered Dose 10 mg .ROUTE .STK-MED ONE Stop: 01/07/23 13:47 Nystatin (Nystatin Powder 15 Gm Btl) 1 applic TOPICAL BID LEN Last Admin: 01/14/23 19:20 Dose: Not Given Nystatin (Nystatin Cream 30 Gm) 1 applic TOPICAL BID PRN PRN Reason: ITCHING Last Admin: 01/11/23 21:00 Dose: 1 applic Ondansetron HCl (Ondansetron 2 Mg/Ml Sdv 2 Ml) 4 mg IVP Q6H PRN PRN Reason: NAUSEA AND VOMITING Last Admin: 01/15/23 00:32 Dose: 4 mg Ondansetron HCl (Ondansetron 2 Mg/Ml Sdv 2 Ml) Confirm Administered Dose 4 mg .ROUTE .STK-MED ONE Stop: 01/07/23 13:47 Ondansetron HCl (Ondansetron 2 Mg/Ml Sdv 2 Ml) 4 mg IVP ONCE PRN PRN Reason: NAUSEA AND VOMITING Paliperidone (Paliperidone Er 6 Mg Tablet) 12 mg PO DAILY [facility] Last Admin: 01/14/23 10:04 Dose: 12 mg Pantoprazole Sodium (Pantoprazole 40 Mg Sdv) 40 mg IVP DAILY [facility] Last Admin: 01/14/23 18:44 Dose: 40 mg Potassium Chloride (Potassium Chloride Er 20 Meq Tablet) 40 meq PO ONCE ONE Stop: 01/11/23 18:01 Last Admin: 01/11/23 18:57 Dose: 40 meq Potassium Chloride (Potassium Chloride Er 20 Meq Tablet) 40 meq PO Q6H [facility] Stop: 01/12/23 17:31 Last Admin: 01/12/23 17:07 Dose: 40 meq Prednisone (Prednisone 20 Mg Tablet) 20 mg PO ONCE ONE Stop: 01/13/23 19:38 Last Admin: 01/13/23 20:34 Dose: 20 mg Propofol (Propofol 10 Mg/Ml Sdv 20 Ml) Confirm Administered Dose 200 mg .ROUTE .STK-MED ONE Stop: 01/07/23 13:47 Propofol (Propofol 10 Mg/Ml Sdv 20 Ml) Confirm Administered Dose 200 mg .ROUTE .STK-MED ONE Stop: 01/07/23 15:31 Rocuronium [place] (Rocuronium 10 Mg/Ml Inj 5ml) Confirm Administered Dose 50 mg .ROUTE .STK-MED ONE Stop: 01/07/23 13:47 Scopolamine (Scopolamine 1.5 Patch) 1 patch TRANSDERMA ONCE PRN PRN Reason: Nausea/ Vomiting Prophylaxis Sugammadex Sodium (Sugammadex 200 Mg/2 Ml Sdv) Confirm Administered Dose 200 mg .ROUTE .STK-MED ONE Stop: 01/07/23 14:23 Allergies No Known Allergies Allergy (Verified 01/06/23 18:25) Home Medications hydroxyzine HCl 25 mg tablet 25 mg PO TID PRN anxiety #90 tabs 06/03/20 [Rx Confirmed 01/07/23] trazodone 50 mg tablet 50 mg PO .QHS #30 tabs 05/03/22 [Rx Confirmed 01/07/23] paliperidone 6 mg tablet,extended release 24 hr (Invega) 12 mg PO QAM #60 tabs 01/03/23 [Rx Confirmed 01/07/23] amoxicillin 875 mg-potassium clavulanate 125 mg tablet 1 tab PO BID #14 tabs 01/13/23 [Rx] docusate sodium 100 mg capsule (Colace) 100 mg PO BID #14 caps 01/13/23 [Rx] hydrocodone 10 mg-acetaminophen 325 mg tablet 1 tab PO Q6H PRN pain #20 tabs 01/13/23 [Rx] Discharge Plan Discharge Patient Disposition: Xfer Short-Term Hosp Condition: Stable Prescriptions: New amoxicillin-pot clavulanate 875-125 mg tablet 1 tab PO BID Qty: 14 0RF hydrocodone-acetaminophen 10-325 mg tablet 1 tab PO Q6H PRN (Reason: pain) Qty: 20 0RF Rx Instructions: May take half of a tab at a time Colace 100 mg capsule 100 mg PO BID Qty: 14 0RF Continued hydroxyzine HCl 25 mg tablet 25 mg PO TID PRN (Reason: anxiety) Qty: 90 0RF trazodone 50 mg tablet 50 mg PO .QHS Qty: 30 5RF paliperidone [Invega] 6 mg tablet extended release 24 hr 12 mg PO QAM Qty: 60 2RF Discharge Orders: Discharge Order (Routine); Ordered 01/14/23 Ordered By: Stoney Garcia Referrals: [facility] [Other] - 4-7 days (You have been set up with an appointment with ZEFERINO Turner on 01/14/23 at 2 PM. Please call and give them your insurance information before your appointment. ) Discharge Activity: Limit activity as instructed Activity Restrictions/Additional Instructions: No lifting, pushing or pulling over 15 pounds for 6 weeks. Do not soak incisions underwater for 2 weeks. Shower daily. Let the glue fall off on its own. Plan of Treatment: Transfer to higher level of care for surgical management Transfer Attestations Time Spent in Transfer Care: greater than 30 min Quality Metrics Clinical Quality Measures [ No reported AMI, CVA or VTE this stay] Coding Level of Care Code Acute Code for Chg Fwd Diagnoses Pneumomediastinum J98.2 Subcutaneous emphysema T79.7XXA Incarcerated umbilical hernia K42.0 Leukocytosis D72.829 Maculopapular rash R21 Enterocutaneous fistula K63.2
== END 2023-01-15 00:40 | disposition short-term general hospital (02) | DRG 336 ==
LOC: ER 23:16 → MEDSURG 23:54 → ICU 01-13 18:20
PROVIDERS: Student in an Organized Health Care Education/Training Program; Admitting Provider Surgery; Emergency Provider Physician Assistant; Visit Provider Surgery
PROC: 0WQF4ZZ Repair Abdominal Wall, Percutaneous Endoscopic Approach (ICD-10-PCS; principal; 2023-01-07 14:30)
DX: K43.0 Incisional hernia with obstruction, without gangrene (principal); K56.7 Ileus, unspecified; K91.89 Other postprocedural complications and disorders of digestive system; K63.2 Fistula of intestine; T81.82XA Emphysema (subcutaneous) resulting from a procedure, initial encounter; Y82.9 Unspecified medical devices associated with adverse incidents; Z79.891 Long term (current) use of opiate analgesic; F10.20 Alcohol dependence, uncomplicated; F25.1 Schizoaffective disorder, depressive type; F17.210 Nicotine dependence, cigarettes, uncomplicated; Z90.49 Acquired absence of other specified parts of digestive tract; R00.0 Tachycardia, unspecified; L27.0 Generalized skin eruption due to drugs and medicaments taken internally; T36.0X5A Adverse effect of penicillins, initial encounter; K66.0 Peritoneal adhesions (postprocedural) (postinfection)
CPT/HCPCS: 36415; 36573; 51702; 71045; 71260; 74018; 74022; 74177; 80048; 80053; 80061; 80202; 81001; 82607; 82746; 83036; 83540; 83550; 83605; 83690; 83735; 84100; 84443; 85007; 85025; 85651; 86140; 86850; 86900; 87040; 87426; 87635; 87641; 88302; 96361; 96374; 96375; 96376; 99285; C1781; C9113; J0131; J1100; J1170; J1450; J2185; J2250; J2270; J2405; J2543; J2704; J2710; J3010; J3370; J3480; J3490; J7030; J7120; J7512; Q9967